=== PATIENT | male | born 1970 | race African-American/Black ===

== ENCOUNTER → 2017-01-04 | Outpatient (CLI) | payer SELFPAY ==
[~2017-01-04] MED LIST: CEFD300C3 PO
--- OUTSIDE RECORDS SUMMARY | 2017-01-04 12:51 | XMS REPORT | Continuity of Care Document ---
Author Author [facility] Address Unknown Phone Unavailable Allergies Active Description Code Type Severity Reaction Onset Reported/Identified Relationship to Patient Clinical Status Yes NKANo Known Allergies NKA Miscellaneous Allergy Unknown N/ A 08/23/2006 Medications Problems Date Dx Coded Attending Type Code Diagnosis Diagnosed By 03/22/2009 726.72 TIBIALIS TENDINITIS 03/22/2009 726.72 TIBIALIS TENDINITIS 03/22/2009 SHASHI NELSON DO 726.72 TIBIALIS TENDINITIS 12/26/2011 491.21 CHRONIC BRONCHITIS - WITH ACUTE EXACERBATION 12/26/2011 V65.42 Patient Education - Alcohol 12/26/2011 491.21 CHRONIC BRONCHITIS - WITH ACUTE EXACERBATION 12/26/2011 V65.42 Patient Education - Alcohol 12/26/2011 SHASHI NELSON DO 491.21 CHRONIC BRONCHITIS - WITH ACUTE EXACERBATION 12/26/2011 SHASHI NELSON DO V65.42 Patient Education - Alcohol 01/05/2012 466.0 BRONCHITIS, ACUTE 01/05/2012 466.0 BRONCHITIS, ACUTE 01/05/2012 SHASHI NELSON DO 466.0 BRONCHITIS, ACUTE 10/02/2012 786.2 COUGH 10/02/2012 786.2 COUGH 10/02/2012 SHASHI NELSON DO 786.2 COUGH 01/08/2016 KAN HUTCHINS MD Ot R51 01/08/2016 KAN HUTCHINS MD Ot Z53.21 01/08/2016 KAN HUTCHINS MD Ot F12.10 01/08/2016 KAN HUTCHINS MD Ot J01.00 Procedures Results Encounters ACCT No. Visit Date/Time Discharge Status Pt. Type Provider Facility Loc./Unit Complaint [id number] 12/06/2012 09:13:00 12/06/2012 23: 59:59 CLS Outpatient [id number] 11/21/2012 08:04:00 11/21/2012 23: 59:59 CLS Outpatient [id number] 01/05/2012 13:29:00 01/05/2012 23:59 :59 [facility] Outpatient SHASHI NELSON DO
--- NOTE | 2017-01-04 16:41 | Diagnostic Imaging Report ---
PROCEDURE: CT head without contrast. TECHNIQUE: Multiple contiguous axial images were obtained through the brain without the use of intravenous contrast. INDICATION: Head pain, sinus pressure, symptoms on the left. COMPARISON: Exam compared to 01/08/2016. FINDINGS: There is no intracranial hemorrhage, hydrocephalus, edema, mass, or mass effect. There were no findings of an elevation of the intracranial pressures. The basilar cisterns are patent. There is no mastoid effusion. The middle ear cavities and external auditory canals appeared unremarkable. There is slight mucous membrane thickening in the left maxillary sinus. The right maxillary, the ethmoids, the sphenoid, and the frontal sinuses were all clear. There is no paranasal sinus air-fluid level. IMPRESSION: Very slight chronic-appearing left maxillary sinus membrane thickening. No air-fluid levels. No acute bony pathology and normal appearance of the brain. Dictated by: Dictated on workstation # [id number]
== END ==
LOC: RAD 12:47
PROVIDERS: ATTEND Nurse Practitioner Family
DX: H57.12 Ocular pain, left eye (principal)
CPT/HCPCS: 70450

== ENCOUNTER 2018-04-01 11:35 | Emergency (ER) | payer OTHER ==
[~2018-04-01] VITALS: Ht 182.9 cm; Wt 72.6 kg
--- OUTSIDE RECORDS SUMMARY | 2018-04-01 11:41 | XMS REPORT ---
Author Author CARLOZ ANNE Organization [facility] Address [address] [place] [address] Care Team Providers Care Professional Skateboarder Name Role Phone CARLOZ ANNE Unavailable PROBLEMS Type Condition ICD9-CM Code [id number]-SQ Code Onset Dates Condition Status SNOMED Code Problem Dental caries K02.9 Active 11568038 Problem Seborrheic keratosis L82.1 Active 275397628 Problem Elevated hemoglobin A1c R73.09 Active 370384510 Problem Right medial knee pain M25.561 Active 89860799 Problem Encounter to establish care Z76.89 Active 953692892 ALLERGIES No Information SOCIAL HISTORY Never Assessed PLAN OF CARE VITAL SIGNS MEDICATIONS No Known Medications RESULTS No Results PROCEDURES No Known procedures IMMUNIZATIONS No Known Immunizations MEDICAL (GENERAL) HISTORY Type Description Date Medical History Poor Historian- Denies [facility] Hospitalization History [facility] - Meningitis 2014
--- OUTSIDE RECORDS SUMMARY | 2018-04-01 11:41 | XMS REPORT ---
Author Author MAYNOR ALBRECHT Organization [facility] Address [address] [place] [address] Care Team Providers Care Animal Attendants And Trainers Name Role Phone MAYNOR ALBRECHT Unavailable PROBLEMS Type Condition ICD9-CM Code [id number] Code Onset Dates Condition Status SNOMED Code Problem Dental caries K02.9 Active 98007684 Problem Seborrheic keratosis L82.1 Active 181742124 Problem Elevated hemoglobin A1c R73.09 Active 231340238 Problem Right medial knee pain M25.561 Active 98366540 Problem Encounter to establish care Z76.89 Active 610516989 ALLERGIES Substance Reaction Event Type Date Status N.K.D.A. Unknown Non Drug Allergy Nov, Unknown SOCIAL HISTORY No smoking Hx information available PLAN OF CARE VITAL SIGNS Height 72 in 2016-12-20 Weight 161.0 lbs 2016-12-20 Temperature 97.7 degrees Fahrenheit 2016-12-20 Heart Rate 52 bpm 2016-12-20 Respiratory Rate 18 2016-12-20 BMI 21.83 kg/m2 2016-12-20 Blood pressure systolic 138 mmHg 2016-12-20 Blood pressure diastolic 92 mmHg 2016-12-20 MEDICATIONS Medication Instructions Dosage Frequency Start Date End Date Duration Status Licking 7.5-325 MG Orally every 6 hrs 1 tablet as needed 6h Nov, Active Augmentin 875-125 MG Orally every 12 hrs 1 tablet 12h Nov, Dec, 10 day(s) Active Amoxicillin 500 MG Orally every 12 hrs 1 tablet 12h Nov, Dec, 14 days Active PredniSONE 20 mg Orally Once a day 2 tablets 24h Nov, Nov, 05 days Active RESULTS No Results PROCEDURES Procedure Date Ordered Related Diagnosis Body Site Office Visit, Est Pt., Level 3 Dec 20, 2016 IMMUNIZATIONS No Known Immunizations
--- OUTSIDE RECORDS SUMMARY | 2018-04-01 11:41 | XMS REPORT ---
Author Author SHASHI NELSON [facility] Address [address] [place] [address] Care Team Providers Care Purler Name Role Phone SHASHI NELSON Unavailable PROBLEMS Type Condition ICD9-CM Code ZXG65-ON Code Onset Dates Condition Status SNOMED Code Problem Dental caries K02.9 Active 98631655 Problem Seborrheic keratosis L82.1 Active 488379585 Problem Elevated hemoglobin A1c R73.09 Active 522710600 Problem Right medial knee pain M25.561 Active 73320091 Problem Encounter to establish care Z76.89 Active 760924166 ALLERGIES No Known Allergies SOCIAL HISTORY No smoking Hx information available PLAN OF CARE VITAL SIGNS MEDICATIONS No Known Medications RESULTS No Results PROCEDURES No Known procedures IMMUNIZATIONS No Known Immunizations
--- OUTSIDE RECORDS SUMMARY | 2018-04-01 11:41 | XMS REPORT ---
Author MITZY Hill Organization [employer] Address Unknown Phone Unavailable Care Team Providers Care Senior Web Analyst Name Role Phone MITZY SANTANA CP Unavailable Allergies No Known Allergies Problems Problem Type Condition ICD-9 Code Onset Dates Condition Status Problem Screening-pulmonary TB V74.1 Active Problem Cough 786.2 Active Problem Routine adult health maintenance V70.0 Active Problem Obstructive chronic bronchitis, with (acute) exacerbation 491.21 Active Problem Acute bronchitis 466.0 Active Problem Counseling on substance use and abuse V65.42 Active Medications No Known Medications Results No Known Results Summary Purpose [employer] Submission
--- OUTSIDE RECORDS SUMMARY | 2018-04-01 11:41 | XMS REPORT ---
Author Author CARLOZ ANNE Organization [facility] Address [address] [place] [address] Care Team Providers Care Parcel Post Officer Name Role Phone CARLOZ ANNE Unavailable PROBLEMS Type Condition ICD9-CM Code RPD48-HS Code Onset Dates Condition Status SNOMED Code Problem Dental caries K02.9 Active 96784845 Problem Seborrheic keratosis L82.1 Active 757327950 Problem Elevated hemoglobin A1c R73.09 Active 353126146 Problem Right medial knee pain M25.561 Active 84368172 Problem Encounter to establish care Z76.89 Active 093897332 ALLERGIES No Known Allergies SOCIAL HISTORY Never Assessed PLAN OF CARE VITAL SIGNS MEDICATIONS No Known Medications RESULTS No Results PROCEDURES No Known procedures IMMUNIZATIONS No Known Immunizations MEDICAL (GENERAL) HISTORY Type Description Date Medical History Poor Historian- Denies [facility] Hospitalization History [facility] - Meningitis 2014
--- OUTSIDE RECORDS SUMMARY | 2018-04-01 11:41 | XMS REPORT ---
Author Author MARIA ELENA ARREAGA Organization [facility] Address [address] [place] [address] Care Team Providers Care Merchant Tailor Name Role Phone MARIA ELENA ARREAGA Unavailable PROBLEMS Type Condition ICD9-CM Code FAM61-VK Code Onset Dates Condition Status SNOMED Code Problem Dental caries K02.9 Active 52373284 Problem Seborrheic keratosis L82.1 Active 708907912 Problem Elevated hemoglobin A1c R73.09 Active 476271915 Problem Right medial knee pain M25.561 Active 09376950 Problem Encounter to establish care Z76.89 Active 179289474 ALLERGIES Substance Reaction Event Type Date Status N.K.D.A. Unknown Non Drug Allergy Nov, Unknown SOCIAL HISTORY No smoking Hx information available PLAN OF CARE Activity Details Follow Up prn Reason: VITAL SIGNS Height 72 in 2016-12-13 Weight 163.2 lbs 2016-12-13 Temperature 98.0 degrees Fahrenheit 2016-12-13 Heart Rate 60 bpm 2016-12-13 Respiratory Rate 18 2016-12-13 BMI 22.13 kg/m2 2016-12-13 Blood pressure systolic 128 mmHg 2016-12-13 Blood pressure diastolic 78 mmHg 2016-12-13 MEDICATIONS Medication Instructions Dosage Frequency Start Date End Date Duration Status Amoxicillin 500 MG Orally every 12 hrs 1 tablet 12h 18 Nov, 2016 Dec, 14 days Active RESULTS No Results PROCEDURES Procedure Date Ordered Related Diagnosis Body Site Office Visit, Est Pt., Level 3 Dec 13, 2016 IMMUNIZATIONS No Known Immunizations
--- OUTSIDE RECORDS SUMMARY | 2018-04-01 11:41 | XMS REPORT ---
Author Author SAURABH GARZA Organization [facility] Address [address] [place] [address] Care Team Providers Care Mortgage Protection Specialist Name Role Phone SAURABH GARZA Unavailable PROBLEMS Type Condition ICD9-CM Code VLE61-DK Code Onset Dates Condition Status SNOMED Code Problem Erectile dysfunction, unspecified erectile dysfunction type N52.9 Active 494023444 Problem Dental caries K02.9 Active 30759571 Problem Encounter to establish care Z76.89 Active 058135517 Problem Elevated hemoglobin A1c R73.09 Active 615724821 Problem Seborrheic keratosis L82.1 Active 719232468 Problem Right medial knee pain M25.561 Active 21873190 ALLERGIES No Known Allergies ENCOUNTERS Encounter Location Date Diagnosis [facility] [id number] [place] [address] Nov, Bilateral groin pain R10.30 [place] [id number] [place] [address] Nov, Bilateral groin pain R10.30 and Erectile dysfunction, unspecified erectile dysfunction type N52.[address] [facility] [id number] [place] [id number] Jun, Dental examination Z01.20 and Dental caries K02.9 [facility] [id number] [place] [address] Jan, [facility] [id number] [place] [address] Dec, Elevated hemoglobin A1c R73.09 [facility] [id number] [place] [address] Dec, Encounter to establish care Z76.89 ; Dental caries K02.9 ; Right medial knee pain M25.561 ; Seborrheic keratosis L82.1 and PPD positive R76.11 [facility] [id number] [place] [address] Dec, [facility] [id number] [place] [address] Dec, Left eye pain H57.12 [facility] [address] [address] Nov, [facility] [address] [address] Nov, Acute recurrent frontal sinusitis J01.11 ; Vision changes H53.9 and Left eye pain H57.12 [facility] [place] [id number] [place] [address] Nov, Acute non-recurrent maxillary sinusitis J01.[address] [facility] [address] [id number] March, Dental examination Z01.20 [place] [address] [address] Jun, [place] [address] [address] Jun, Routine adult health maintenance V70.0 and Screening- pulmonary TB V74.1 [place] [id number] [place] [address] Feb, [place] [id number] [place] [address] Feb, [place] [address] [address] Nov, [facility] [address] [address] Nov, [place] [address] [address] Sep, [facility] [address] [facility] [id number] [address] Sep, [facility] [id number] [address] Sep, [facility] [id number] [address] Sep, [facility] [id number] [address] Aug, [facility] [id number] [address] Aug, [facility] [id number] [address] Dec, [facility] [id number] [address] Dec, [facility] [id number] [address] Nov, IMMUNIZATIONS No Known Immunizations SOCIAL HISTORY Never Assessed REASON FOR VISIT mono PLAN OF CARE VITAL SIGNS Blood pressure systolic 96 mmHg 2017-07-26 Blood pressure diastolic 48 mmHg 2017-07-26 MEDICATIONS Unknown Medications RESULTS No Results PROCEDURES Procedure Date Ordered Result Body Site LTD ORAL EVALUATION - PROBLEM FOCUS Jul 26, 2017 INTRAORL-PERIAPICAL 1 FILM 60913 Jul 26, 2017 EXTRAC ERUPTED TOOTH/EXPOSED ROOT Jul 26, 2017 INSTRUCTIONS MEDICATIONS ADMINISTERED No Known Medications MEDICAL (GENERAL) HISTORY Type Description Date Medical History Poor Historian- Denies [facility] Hospitalization History [facility] - Meningitis 2015
--- OUTSIDE RECORDS SUMMARY | 2018-04-01 11:41 | XMS REPORT ---
Author Author OMID CARLOZ Organization [facility] Address [address] [place] [address] Care Team Providers Care Vice President Payment Name Role Phone ANNECARLOZ Govea Unavailable PROBLEMS Type Condition ICD9-CM Code ETD76-IN Code Onset Dates Condition Status SNOMED Code Problem Dental caries K02.9 Active 31924708 Problem Seborrheic keratosis L82.1 Active 446224596 Problem Elevated hemoglobin A1c R73.09 Active 519375932 Problem Right medial knee pain M25.561 Active 07851302 Problem Encounter to establish care Z76.89 Active 218531650 ALLERGIES No Known Allergies SOCIAL HISTORY Never Assessed PLAN OF CARE Activity Details Follow Up 4 Weeks Reason:F/u labs/xray VITAL SIGNS Height 72 in 2017-01-19 Weight 160 lbs 2017-01-19 Temperature 98.4 degrees Fahrenheit 2017-01-19 Heart Rate 70 bpm 2017-01-19 Respiratory Rate 20 2017-01-19 BMI 21.70 kg/m2 2017-01-19 Blood pressure systolic 114 mmHg 2017-01-19 Blood pressure diastolic 74 mmHg 2017-01-19 MEDICATIONS No Known Medications RESULTS No Results PROCEDURES Procedure Date Ordered Result Body Site GLYCATED HEMOGLOBIN TEST Jan 19, 2017 COMPLETE CBC W/AUTO DIFF WBC Jan 19, 2017 CHEST X-RAY Jan 19, 2017 VENIPUNCT, ROUTINE* Jan 19, 2017 ASSAY THYROID STIM HORMONE Jan 19, 2017 COMPREHEN METABOLIC PANEL Jan 19, 2017 X-RAY EXAM OF KNEE, 3 Jan 19, 2017 LIPID PANEL Jan 19, 2017 IMMUNIZATIONS No Known Immunizations MEDICAL (GENERAL) HISTORY Type Description Date Medical History Poor Historian- Denies [facility] Hospitalization History [facility] - Meningitis 2014
--- OUTSIDE RECORDS SUMMARY | 2018-04-01 11:41 | XMS REPORT ---
Author Author CARLOZ ANNE Organization [facility] Address [address] [place] [address] Care Team Providers Care Ed Teacher Name Role Phone CARLOZ ANNE Unavailable PROBLEMS Type Condition ICD9-CM Code RIL34-QN Code Onset Dates Condition Status SNOMED Code Problem Dental caries K02.9 Active 87640425 Problem Seborrheic keratosis L82.1 Active 556290213 Problem Elevated hemoglobin A1c R73.09 Active 564065018 Problem Right medial knee pain M25.561 Active 23459182 Problem Encounter to establish care Z76.89 Active 600185984 ALLERGIES No Information SOCIAL HISTORY Never Assessed PLAN OF CARE VITAL SIGNS MEDICATIONS No Known Medications RESULTS No Results PROCEDURES No Known procedures IMMUNIZATIONS No Known Immunizations MEDICAL (GENERAL) HISTORY Type Description Date Medical History Poor Historian- Denies [facility] Hospitalization History [facility] - Meningitis 2014
--- OUTSIDE RECORDS SUMMARY | 2018-04-01 11:41 | XMS REPORT | Continuity of Care Document ---
Author Author [facility] Address Unknown Phone Unavailable Allergies Active Description Code Type Severity Reaction Onset Reported/Identified Relationship to Patient Clinical Status Yes NKANo Known Allergies NKA Miscellaneous Allergy Unknown N/A 08/23/2006 Medications There is no data. Problems Date Dx Coded Attending Type Code [...] 01/08/2016 KAN HUTCHINS MD Ot J01.00 Procedures There is no data. Results Test Result Range CBC With Differential/Platelet - 01/19/17 11:37 WBC 4.2 x10E3/uL 3.4-10.8 RBC 4.73 x10E6/uL 4.14-5.80 Hemoglobin 14.1 g/dL 12.6-17.7 Hematocrit 43.3 % 37.5-51.0 MCV 92 fL 79-97 MCH 29.8 pg 26.6-33.0 MCHC 32.6 g/dL 31.5-35.7 RDW 13.9 % 12.3-15.4 Platelets 238 x10E3/uL 150-379 Neutrophils 40 % Lymphs 48 % Monocytes 9 % Eos 2 % Basos 0 % Neutrophils (Absolute) 1.7 x10E3/uL 1.4-7.0 Lymphs (Absolute) 2.0 x10E3/uL 0.7-3.1 Monocytes(Absolute) 0.4 x10E3/uL 0.1-0.9 Eos (Absolute) 0.1 x10E3/uL 0.0-0.4 Baso (Absolute) 0.0 x10E3/uL 0.0-0.2 Immature Granulocytes 1 % Immature Grans (Abs) 0.0 x10E3/uL 0.0-0.1 Comp. Metabolic Panel (14) - 01/19/17 11:37 Glucose, Serum 79 mg/dL 65-99 BUN 11 mg/dL 6-24 Creatinine, Serum 1.07 mg/dL 0.76-1.27 eGFR If NonAfricn Am 82 mL/min/1.73 >59 eGFR If Africn Am 95 mL/min/1.73 >59 BUN/Creatinine Ratio 10 9-20 Sodium, Serum 143 mmol/L 134-144 Potassium, Serum 4.6 mmol/L 3.5-5.2 Chloride, Serum 103 mmol/L 96-106 Carbon Dioxide, Total 27 mmol/L 18-29 Calcium, Serum 9.8 mg/dL 8.7-10.2 Protein, Total, Serum 6.4 g/dL 6.0-8.5 Albumin, Serum 4.4 g/dL 3.5-5.5 Globulin, Total 2.0 g/dL 1.5-4.5 A/G Ratio 2.2 1.1-2.5 Bilirubin, Total 0.5 mg/dL 0.0-1.2 Alkaline Phosphatase, S 38 IU/L 39-117 AST (SGOT) 11 IU/L 0-40 ALT (SGPT) 12 IU/L 0-44 Lipid Panel - 01/19/17 11:37 Cholesterol, Total 168 mg/dL 100-199 Triglycerides 32 mg/dL 0-149 HDL Cholesterol 66 mg/dL >39 VLDL Cholesterol [place] 6 mg/dL 5-40 LDL Cholesterol Calc 96 mg/dL 0-99 Hemoglobin A1c - 01/19/17 11:37 Hemoglobin A1c 6.3 % 4.8-5.6 Thyroid [place] Profile - 01/19/17 11:37 TSH 0.675 uIU/mL 0.450-4.500 PSA - 11/30/17 10:16 PSA, TOTAL 0.8 ng/mL < OR=4.0 Encounters ACCT No. Visit Date/Time Discharge Status Pt. Type Provider Facility Loc./Unit Complaint [id number] 12/06/2012 09:13:00 12/06/2012 23:59:59 CLS Outpatient [id number] 11/21/2012 08:04:00 11/21/2012 23:59:59 CLS Outpatient [id number] 01/05/2012 13:29:00 01/05/2012 23:59:59 CLS Outpatient SHASHI NELSON DO [id number] 11/30/2017 09:40:00 11/30/2017 23:59:59 CLS Outpatient CARLOZ ANNE [facility] [id number] 11/30/2017 09:40:00 Document Registration [id number] 01/22/2017 13:05:00 Document Registration [id number] 07/26/2017 12:40:00 07/26/2017 23:59:59 CLS Outpatient ÁNGEL HASSAN [facility] OCC PRE EMPLOYMENT [id number] 01/04/2017 12:47:00 01/04/2017 23:59:59 CLS Outpatient CARLOZ ANNE APRN [facility] RAD LT EYE PAIN [id number] 01/08/2016 11:31:00 01/08/2016 13:52:00 DIS Emergency KAN HUTCHINS MD [facility] ER [id number] 01/08/2016 10:53:00 01/08/2016 11:06:00 DIS Emergency KAN HUTCHINS MD [facility] ER
--- OUTSIDE RECORDS SUMMARY | 2018-04-01 11:41 | XMS REPORT ---
Author Author CARLOZ ANNE Organization [facility] Address [address] [place] [address] Care Team Providers Care Risk Control Officer Name Role Phone ANNECARLOZ Govea Unavailable PROBLEMS Type Condition ICD9-CM Code VUP17-CR Code Onset Dates Condition Status SNOMED Code Problem Dental caries K02.9 Active 60743180 Problem Seborrheic keratosis L82.1 Active 134600778 Problem Elevated hemoglobin A1c R73.09 Active 724183256 Problem Right medial knee pain M25.561 Active 60097199 Problem Encounter to establish care Z76.89 Active 752311946 ALLERGIES No Known Allergies SOCIAL HISTORY Never Assessed PLAN OF CARE Activity Details Follow Up prn Reason: VITAL SIGNS Height 72 in 2017-01-01 Weight 161.6 lbs 2017-01-01 Temperature 97.8 degrees Fahrenheit 2017-01-01 Heart Rate 64 bpm 2017-01-01 Respiratory Rate 18 2017-01-01 BMI 21.91 kg/m2 2017-01-01 Blood pressure systolic 124 mmHg 2017-01-01 Blood pressure diastolic 74 mmHg 2017-01-01 MEDICATIONS No Known Medications RESULTS Name Result Date Reference Range CT Scan : Brain w/o Contrast 2017-01-04 PROCEDURES No Known procedures IMMUNIZATIONS No Known Immunizations MEDICAL (GENERAL) HISTORY Type Description Date Medical History Poor Historian- Denies [facility] Hospitalization History [facility] - Meningitis 2014
[2018-04-01] MEDS ORDERED: TETANUS,DIPTH,PERTUSS P/F (BOOSTRIX) 0.5 ML VIAL IM ONE (12:15)
[2018-04-01] MEDS ORDERED: AMOX-358 PO (12:18)
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
[2018-04-01 12:53] VITALS: BP 107/69
== END 2018-04-01 12:52 | disposition home or self-care (01) ==
LOC: EDUNIT# 11:35 → ER 11:37
DX: S51.832A Puncture wound without foreign body of left forearm, initial encounter (principal); S51.811A Laceration without foreign body of right forearm, initial encounter; Z23 Encounter for immunization; W54.0XXA Bitten by dog, initial encounter
CPT/HCPCS: 90471; 90715

== ENCOUNTER → 2020-01-23 | Outpatient (CLI) | payer OTHER ==
[~2020-01-23] MED LIST changes: +AMOX-358 PO
--- NOTE | 2020-01-23 15:46 | Diagnostic Imaging Report ---
INDICATION: Right breast lump. COMPARISON: No prior studies are available for comparison. Unilateral right 2-D and 3-D diagnostic mammography was performed with CAD. Left MLO view was also performed for comparison purposes. There is increased density in the retroareolar right breast. This is somewhat flame shaped and likely owing to gynecomastia. No suspicious microcalcifications are seen. This is noted to a lesser degree in the retroareolar left breast. Axillae are unremarkable. IMPRESSION: BI-RADS 0 Findings most suggestive of gynecomastia bilaterally, greatest in the right. Further evaluation of the retroareolar right breast is recommended and will be performed today. ACR BI-RADS Category 0: Incomplete. (Needs additional imaging evaluation). Result letter will be mailed to the patient. Note: At least 10% of breast cancer is not imaged by mammography. Dictated by: Dictated on workstation # [id number]
--- NOTE | 2020-01-23 15:47 | Diagnostic Imaging Report ---
INDICATION: Right breast lump. CORRELATION is made with diagnostic mammogram earlier same day. Sonographic interrogation of the retroareolar right breast was performed. Evaluation of the left breast retroareolar region was also performed for comparison purposes. There is an area of ill-defined hypoechogenicity in the retroareolar right breast approximately 17 mm x 9 mm x 16 mm. This is nonvascular. This has the appearance of gynecomastia. IMPRESSION: BI-RADS Category 2. Findings most consistent with gynecomastia. ACR BI-RADS Category 2: Benign findings. Result letter will be mailed to the patient. Note: At least 10% of breast cancer is not imaged by mammography. Dictated by: Dictated on workstation # [id number]
== END ==
LOC: RAD 13:59
PROVIDERS: ATTEND Physician Assistant
DX: N63.10 Unspecified lump in the right breast, unspecified quadrant (principal)

== ENCOUNTER 2020-06-09 07:05 | Emergency (ER) | payer OTHER ==
[~2020-06-09] VITALS: Ht 182 cm; Wt 75.0 kg
--- OUTSIDE RECORDS SUMMARY | 2020-06-09 07:11 | XMS REPORT | Continuity of Care Document ---
Demographics Preferred Language Unknown Marital Status Unknown Mormon Affiliation Unknown Race Unknown Ethnic Group Unknown Author Organization Unknown Address Unknown Phone Unavailable Allergies Active Description Code Type Severity Reaction Onset Reported/Identified Relationship to Patient Clinical Status Yes NKANo Known Allergies NKA Miscellaneous Allergy Unknown N/A 08/23/2006 Medications There is no data. Problems Date Dx Coded Attending Type Code Diagnosis Diagnosed By 03/22/2009 726.72 TIB IALIS TENDINITIS 03/22/2009 726.72 TIB IALIS TENDINITIS 03/22/2009 SHASHI NELSON DO 726.72 TIBIALIS TENDINITIS 12/26/2011 491.21 CHR ONIC BRONCHITIS - WITH ACUTE EXACERBATION 12/26/2011 V65.42 Pat ient Education - Alcohol 12/26/2011 491.21 CHR ONIC BRONCHITIS - WITH ACUTE EXACERBATION 12/26/2011 V65.42 Pat ient Education - Alcohol 12/26/2011 SHASHI NELSON DO 491.21 CHRONIC BRONCHITIS - WITH ACUTE EXACERBATION 12/26/2011 SHASHI NELSON DO V65.42 Patient Education - Alcohol 01/05/2012 466.0 BRON CHITIS, ACUTE 01/05/2012 466.0 BRON CHITIS, ACUTE 01/05/2012 SHASHI NELSON DO 466.0 BRONCHITIS, ACUTE 10/02/2012 786.2 COUGH 10/02/2012 786.2 COUGH 10/02/2012 SHASHI NELSON DO 786.2 COUGH 01/08/2016 KAN HUTCHINS MD Ot R51 HEADACHE 01/08/2016 KAN HUTCHINS MD Ot Z53.21 PROC/TRTMT NOT CRD OUT D/T PT LV BEF SEE 01/08/2016 KAN HUTCHINS MD Ot F12.10 CANNABIS ABUSE, UNCOMPLICATED 01/08/2016 KAN HUTCHINS MD Ot J01.00 ACUTE MAXILLARY SINUSITIS, UNSPECIFIED 04/01/2018 MOISE FOWLER APRN Ot S51.811A LACERATION W/O FOREIGN BODY OF RIGHT FOR 04/01/2018 MOISE FOWLER APRN Ot S51.832A PUNCTURE WOUND W/O FOREIGN BODY OF LEFT 04/01/2018 MOISE FOWLER APRN Ot W54.0XXA BITTEN BY DOG, INITIAL ENCOUNTER 04/01/2018 MOISE FOWLER APRN Ot Z23 ENCOUNTER FOR IMMUNIZATION 04/01/2018 CARLOZ ANNE RUTHANN Ot H57.12 OCULAR PAIN, LEFT EYE 04/03/2018 MOISE FOWLER APRN Ot S51.811A LACERATION W/O FOREIGN BODY OF RIGHT FOR 04/03/2018 MOISE FOWLER APRN Ot S51.832A PUNCTURE WOUND W/O FOREIGN BODY OF LEFT 04/03/2018 MOISE FOWLER APRN Ot W54.0XXA BITTEN BY DOG, INITIAL ENCOUNTER 04/03/2018 MOISE FOWLER APRN Ot Z23 ENCOUNTER FOR IMMUNIZATION 01/26/2020 TOBY REINOSO Ot N63.10 UNSPECIFIED LUMP IN THE RIGHT BREAST, UN 02/11/2020 TOBY REINOSO Ot N63.10 UNSPECIFIED LUMP IN THE RIGHT BREAST, UN Procedures There is no data. Results Test Result Range CBC With Differential/Platelet - 7 11:37 WBC 4.2 x10E3/uL 3.4-10.8 RBC 4.73 x10E6/uL 4.14-5.80 Hemoglobin 14.1 g/dL 12.6-17.7 Hematocrit 43.3 % 37.5-51.0 MCV 92 fL 79-97 MCH 29.8 pg 26.6-33.0 MCHC 32.6 g/dL 31.5-35.7 RDW 13.9 % 12.3-15.4 Platelets 238 x10E3/uL 150-379 Neutrophils 40 % Lymphs 48 % Monocytes 9 % Eos 2 % Basos 0 % Neutrophils (Absolute) 1.7 x10E3/uL 1.4- 7.0 Lymphs (Absolute) 2.0 x10E3/uL 0.7-3.1 Monocytes(Absolute) 0.4 x10E3/uL 0.1-0.9 Eos (Absolute) 0.1 x10E3/uL 0.0-0.4 Baso (Absolute) 0.0 x10E3/uL 0.0-0.2 Immature Granulocytes 1 % Immature Grans (Abs) 0.0 x10E3/uL 0.0-0. 1 Comp. Metabolic Panel (14) - 01/19/17 11 :37 Glucose, Serum 79 mg/dL 65-99 BUN 11 [...] 11:37 Hemoglobin A1c 6.3 % 4.8-5.6 Thyroid [place] Profile - 01/19/17 11:37 TSH 0.675 uIU/mL 0.450-4.500 PSA - 11/30/17 10:16 PSA, TOTAL 0.8 ng/mL < OR = 4.0 LIPID PANEL - 08/29/19 09:52 CHOLESTEROL, TOTAL 223 mg/dL <200 HDL CHOLESTEROL 72 mg/dL >40 TRIGLYCERIDES 72 mg/dL <150 LDL-CHOLESTEROL 135 mg/dL (calc) NRG CHOL/HDLC RATIO 3.1 (calc) <5.0 NON HDL CHOLESTEROL 151 mg/dL (calc) <13 0 Encounters ACCT No. Visit Date/Time Discharge Status Pt. Type Provider Facility Loc./Unit Complaint [id number] 01/22/2017 13:05:00 Document Registration [id number] 01/12/2020 14:40:00 01/12/2020 23:59: 59 CLS Outpatient TOBY DAVIDSON [facility] [id number] 08/29/2019 09:00:00 Document Registration [id number] 11/30/2017 09:40:00 Document Registration [id number] 12/06/2012 09:13:00 12/06/2012 23:59: 59 CLS Outpatient [id number] 11/21/2012 08:04:00 11/21/2012 23:59: 59 CLS Outpatient [id number] 01/05/2012 13:29:00 01/05/2012 23:59:5 9 CLS Outpatient SHASHI NELSON DO [id number] 01/23/2020 13:59:00 020 23:59:59 CLS Outpatient TOBY REINOSO [facility] RAD LUMP OF RT BREAST [id number] 04/01/2018 11:37:00 018 12:52:00 DIS Emergency MOISE FOWLER APRN [facility] ER DOG BITE ON BOTH FOREAR MS [id number] 07/26/2017 12:40:00 017 23:59:59 CLS Outpatient ÁNGEL HASSAN [employer] [facility] OCC PRE EMPLOYMENT [id number] 01/04/2017 12:47:00 017 23:59:59 CLS Outpatient CARLOZ ANNE APRN [facility] RAD LT EYE PAIN [id number] 01/08/2016 11:31:00 016 13:52:00 DIS Emergency KAN HUTCHINS MD [facility] ER HEADACHE/SINUS PRESSURE [id number] 01/08/2016 10:53:00 016 11:06:00 DIS Emergency KAN HUTCHINS MD [facility] ER HEADACHE/SINUS PRESSURE [id number] 06/09/2020 07:06:[address] Emergency BOBY MORLEY MD [facility] ER COVID SYMPTOMS
--- OUTSIDE RECORDS SUMMARY | 2020-06-09 07:11 | XMS REPORT ---
Author Author Edin ALBRECHT Organization [facility] Address [address] [place] [address] Care Team Providers Care Slitter Scorer Cut Off Operator Name Role Phone MAYNOR ALBRECHT Unavailable PROBLEMS Type Condition ICD9-CM Code [id number] Code Onset Dates Condition S tatus SNOMED Code Problem Erectile dysfunction, unspecified erectile dysfunction typ e N52.9 Active 059169936 Problem Dental caries K02.9 Active 418550 01 Problem Encounter to establish care Z76.89 Ac tive 801886720 Problem Elevated hemoglobin A1c R73.09 Active 564542499 Problem Seborrheic keratosis L82.1 Active 796544840 Problem Right medial knee pain M25.561 Active 71711738 ALLERGIES No Information ENCOUNTERS Encounter Location Date Diagnosis [facility] [address] [facility] [id number] [address] [place] [phone] Feb, [facility] [address] [facility] [id number] [address] [place] [phone] Nov, Bilateral groin pain R10.30 [facility] [address] [facility] [id number] [address] [place] [phone] Nov, Bilateral groin pain R10.30 and Erectile dysfunction, unspecified erectile dysfunction type N52.9 [facility] [address] [id number] [address] [place] [phone] Jun, Dental examination Z01.20 an d Dental caries K02.9 [facility] [address] [facility] [id number] [address] [place] [phone] Jan, [facility] [address] [facility] [id number] [address] [place] [phone] Dec, Elevated hemoglobin A1c R73. 09 [facility] [address] [place] [id number] [address] [place] [phone] Dec, Encounter to establish care Z76.89 ; Dental caries K02.9 ; Right medial knee pain M25.561 ; Seborrheic keratosis L82.1 and PPD positive R76.11 [facility] [address] [facility] [id number] [address] [place] [phone] Dec, [facility] [address] [facility] [id number] [address] [place] [phone] Dec, Left eye pain H57.12 [facility] [address] [facility] [id number] [address] [place] [phone] Nov, [facility] [address] [facility] [id number] [place] [phone] Nov, Acute recurrent frontal sinu sitis J01.11 ; Vision changes H53.9 and Left eye pain H57.12 [facility] [address] [facility] [id number] [address] [place] [phone] Nov, Acute non-recurrent maxillar y sinusitis J01.00 [facility] [address] [id number] [address] [place] [phone] March, Dental examination Z01.20 [facility] [address] [facility] [id number] [address] [place] [phone] Jun, [facility] [address] [place] [id number] [address] [place] [phone] Jun, Routine adult health mainten ance V70.0 and Screening-pulmonary TB V74.1 [facility] [address] [facility] [id number] [address] [place] [phone] Feb, [facility] [address] [place] [id number] [place] [phone] Feb, [facility] [address] [facility] [id number] [address] [place] [phone] Nov, [facility] [address] [phone] Nov, [facility] [address] [id number] [address] [place] [phone] Sep, [facility] [address] [id number] [address] [place] [phone] Sep, [facility] [address] [id number] [address] [place] [phone] Sep, [facility] [address] [id number] [address] [place] [phone] Sep, [facility] [address] [id number] [address] [place] [phone] Aug, [facility] [address] [id number] [address] [place] [phone] Aug, [facility] [address] [facility] [id number] [address] [place] [phone] Dec, [facility] [address] [id number] [address] [place] [phone] Dec, [facility] [address] [facility] [id number] [address] [place] [phone] Nov, IMMUNIZATIONS No Known Immunizations SOCIAL HISTORY Never Assessed REASON FOR VISIT med refill PLAN OF CARE VITAL SIGNS MEDICATIONS Unknown Medications RESULTS No Results PROCEDURES No Known procedures INSTRUCTIONS MEDICATIONS ADMINISTERED No Known Medications MEDICAL (GENERAL) HISTORY Type Description Date Medical History Poor Historian- Denies [facility] Hospitalization History [facility] - Meningitis 2015
--- OUTSIDE RECORDS SUMMARY | 2020-06-09 07:11 | XMS REPORT ---
Author Author Edin Foster Doctor Organization [facility] Address Unknown Phone Unavailable Care Team Providers Care Bead Wrapper Name Role Phone Migration, Doctor Unavailable Unavailable PROBLEMS Type Condition ICD9-CM Code [id number] Code Onset Dates Condition S tatus SNOMED Code Problem Dental caries K02.9 Active 360022 01 Problem Erectile dysfunction, unspecified erectile dysfunction typ e N52.9 Active 755987478 Problem Elevated hemoglobin A1c R73.09 Active 111236147 Problem Encounter to establish care Z76.89 Ac tive 739918411 Problem Right medial knee pain M25.561 Active 66778361 Problem Seborrheic keratosis L82.1 Active 526602298 ALLERGIES No Information ENCOUNTERS Encounter Location Date Diagnosis [facility] [address] [facility] [id number] [address] [place] [phone] March, Rash R21 and Allergic conjun ctivitis of left eye H10.12 [facility] [address] [facility] [id number] [address] [place] [phone] Feb, [facility] [address] [facility] [id number] [address] [place] [phone] Nov, Bilateral groin pain R10.30 [facility] [address] [facility] [id number] [address] [place] [phone] Nov, Bilateral groin pain R10.30 and Erectile dysfunction, unspecified erectile dysfunction type N52.9 [facility] [address] [id number] [address] [place] [phone] Jun, Dental examination Z01.20 an d Dental caries K02.9 [facility] [address] [facility] [id number] [address] [place] [phone] Jan, [facility] [address] [facility] [id number] [address] [place] [phone] Dec, Elevated hemoglobin A1c R73. 09 [facility] [address] [facility] [id number] [address] [place] [phone] Dec, Encounter to establish care Z76.89 ; Dental caries K02.9 ; Right medial knee pain M25.561 ; Seborrheic keratosis L82.1 and PPD positive R76.11 [facility] [address] [facility] [id number] [address] [place] [phone] Dec, [facility] [address] [facility] [id number] [address] [place] [phone] Dec, Left eye pain H57.12 [facility] [address] [facility] [id number] [place] [phone] Nov, [facility] [address] [facility] [id number] [address] [place] [phone] Nov, Acute recurrent frontal sinu sitis J01.11 ; Vision changes H53.9 and Left eye pain H57.12 [facility] [address] [facility] [id number] [address] [place] [phone] Nov, Acute non-recurrent maxillar y sinusitis J01.00 [facility] [address] [facility] [id number] [address] [place] [phone] March, Dental examination Z01.20 [place] [address] [facility] [id number] [address] [place] [phone] Jun, [place] [address] [place] [id number] [address] [place] [phone] Jun, Routine adult health mainten ance V70.0 and Screening-pulmonary TB V74.1 [place] [address] [place] [id number] [address] [place] [phone] Feb, [place] [address] [facility] [id number] [address] [place] [phone] Feb, [facility] [address] [place] [id number] [place] [phone] Nov, [facility] [address] [id number] [address] [place] [phone] Nov, [facility] [address] [id number] [address] [place] [phone] Sep, [facility] [address] [id number] [address] [place] [phone] Sep, [facility] [address] [id number] [address] [place] [phone] Sep, [facility] [address] [id number] [address] [place] [phone] Sep, [facility] [address] [id number] [address] [place] [phone] Aug, [facility] [address] [id number] [address] [place] [phone] Aug, [facility] [address] [id number] [address] [place] [phone] Dec, [facility] [address] [id number] [address] [place] [phone] Dec, [facility] [address] [id number] [address] [place] [phone] Nov, IMMUNIZATIONS No Known Immunizations SOCIAL HISTORY Never Assessed REASON FOR VISIT PLAN OF CARE VITAL SIGNS Height 72 in 2012-10-02 Weight 158 lbs 2012-10-02 Temperature 97.7 degrees Fahrenheit 2012-10-02 Heart Rate 64 bpm 2012-10-02 Respiratory Rate 18 2012-10-02 Blood pressure systolic 108 mmHg 2012-10-02 Blood pressure diastolic 80 mmHg 2012-10-02 MEDICATIONS No Known Medications RESULTS No Results PROCEDURES No Known procedures INSTRUCTIONS MEDICATIONS ADMINISTERED No Known Medications MEDICAL (GENERAL) HISTORY Type Description Date Medical History Poor Historian- Denies [facility] Surgical History No know Surgical history Hospitalization History [facility] 2014
--- OUTSIDE RECORDS SUMMARY | 2020-06-09 07:11 | XMS REPORT ---
Author Author Edin ALBRECHT Organization [facility] Address [address] [place] [address] Care Team Providers Care Inventory Control Coordinator Name Role Phone MAYNOR ALBRECHT Unavailable PROBLEMS Type Condition ICD9-CM Code ZTY66-VO Code Onset Dates Condition S tatus SNOMED Code Problem Erectile dysfunction, unspecified erectile dysfunction typ e N52.9 Active 624563582 Problem Dental caries K02.9 Active 902672 01 Problem Encounter to establish care Z76.89 Ac tive 849384511 Problem Elevated hemoglobin A1c R73.09 Active 013566803 Problem Seborrheic keratosis L82.1 Active 931306238 Problem Right medial knee pain M25.561 Active 76700425 ALLERGIES No Known Allergies ENCOUNTERS Encounter Location Date Diagnosis [facility] [address] [facility] [id number] [address] [place] [phone] Feb, [facility] [address] [facility] [id number] [address] [place] [phone] Nov, Bilateral groin pain R10.30 [facility] [address] [facility] [id number] [address] [place] [phone] Nov, Bilateral groin pain R10.30 and Erectile dysfunction, unspecified erectile dysfunction type N52.9 [facility] [address] [id number] [address] [place] [phone] Jun, Dental examination Z01.20 an d Dental caries K02.9 [facility] [address] [facility] [id number] [address] [place] [phone] Jan, [facility] [address] [facility] [id number] [address] [place] [phone] Dec, Elevated hemoglobin A1c R73. 09 [facility] [address] [facility] [id number] [address] [place] [phone] Dec, Encounter to establish care Z76.89 ; Dental caries K02.9 ; Right medial knee pain M25.561 ; Seborrheic keratosis L82.1 and PPD positive R76.11 [facility] [address] [facility] [id number] [address] [place] [phone] Dec, [facility] [address] [facility] [id number] [address] [place] [phone] Dec, Left eye pain H57.12 [facility] [address] [facility] [id number] [address] [place] [phone] Nov, [facility] [address] [facility] [id number] [place] [phone] Nov, Acute recurrent frontal sinu sitis J01.11 ; Vision changes H53.9 and Left eye pain H57.12 [facility] [address] [place] [id number] [address] [place] [phone] Nov, Acute non-recurrent maxillar y sinusitis J01.00 [facility] [address] [id number] [address] [place] [address] [phone] March, Dental examination Z01.20 [facility] [address] [facility] [id number] [address] [place] [phone] Jun, [facility] [address] [place] [id number] [address] [place] [phone] Jun, Routine adult health mainten ance V70.0 and Screening-pulmonary TB V74.1 [facility] [address] [facility] [id number] [address] [place] [phone] Feb, [facility] [address] [facility] [id number] [place] [phone] Feb, [facility] [address] [place] [id number] [address] [place] [phone] Nov, [facility] [address] [phone] Nov, [facility] [address] [id number] [address] [place] [phone] Sep, [facility] [address] [id number] [address] [place] [phone] Sep, [facility] [address] [id number] [address] [place] [phone] Sep, [facility] [address] [id number] [address] [place] [phone] Sep, [facility] [address] [id number] [address] [place] [phone] Aug, [facility] [address] [id number] [address] [place] [phone] Aug, [facility] [address] [id number] [address] [place] [phone] Dec, [facility] [address] [id number] [address] [place] [phone] Dec, [facility] [address] [id number] [address] [place] [phone] Nov, IMMUNIZATIONS No Known Immunizations SOCIAL HISTORY Never Assessed REASON FOR VISIT pain in groin, PT also has been having ED since oct[facility] PLAN OF CARE VITAL SIGNS Height 72 in 2017-11-30 Weight 153.4 lbs 2017-11-30 Temperature 98.4 degrees Fahrenheit 2017-11-30 Heart Rate 62 bpm 2017-11-30 Respiratory Rate 18 2017-11-30 BMI 20.80 kg/m2 2017-11-30 Blood pressure systolic 108 mmHg 2017-11-30 Blood pressure diastolic 74 mmHg 2017-11-30 MEDICATIONS Medication Instructions Dosage Frequency Start Date End Date Duration S tatus Viagra 100 mg Orally Once a day 1 tablet as needed 24h Nov, Nov, 10 days Active Franklin 7.5-325 MG Orally every 6 hrs 1 tablet as needed 6h Nov, 017 Not-Taking RESULTS No Results PROCEDURES Procedure Date Ordered Result Body Site LAB NOT BILLED BY [facility] Nov 30, 2017 VENIPUNCT, ROUTINE* Nov 30, 2017 INSTRUCTIONS MEDICATIONS ADMINISTERED No Known Medications MEDICAL (GENERAL) HISTORY Type Description Date Medical History Poor Historian- Denies [facility] Hospitalization History [facility] - Meningitis 2015
--- OUTSIDE RECORDS SUMMARY | 2020-06-09 07:11 | XMS REPORT ---
Author Author Edin Foster Doctor Organization [facility] Address Unknown Phone Unavailable Care Team Providers Care Box Bender Name Role Phone Migration, Doctor Unavailable Unavailable PROBLEMS Type Condition ICD9-CM Code SPN27-RT Code Onset Dates Condition S tatus SNOMED Code Problem Dental caries K02.9 Active 743307 01 Problem Erectile dysfunction, unspecified erectile dysfunction typ e N52.9 Active 156893225 Problem Elevated hemoglobin A1c R73.09 Active 716972972 Problem Encounter to establish care Z76.89 Ac tive 655630641 Problem Right medial knee pain M25.561 Active 26704987 Problem Seborrheic keratosis L82.1 Active 488123973 ALLERGIES No Information ENCOUNTERS Encounter Location Date Diagnosis [facility] [address] [facility] [id number] [address] [place] [phone] Feb, [facility] [address] [facility] [id number] [address] [place] [phone] Nov, Bilateral groin pain R10.30 [facility] [address] [facility] [id number] [address] [place] [phone] Nov, Bilateral groin pain R10.30 and Erectile dysfunction, unspecified erectile dysfunction type N52.9 [facility] [address] [facility] [id number] [address] [place] [phone] Jun, Dental examination Z01.20 an d Dental caries K02.9 [facility] [address] [facility] [id number] [address] [place] [phone] Jan, [facility] [address] [facility] [id number] [address] [place] [phone] Dec, Elevated hemoglobin A1c R73. 09 [facility] [address] [facility] [id number] [address] [place] [phone] Dec, Encounter to establish care Z76.89 ; Dental caries K02.9 ; Right medial knee pain M25.561 ; Seborrheic keratosis L82.1 and PPD positive R76.11 [facility] [address] [facility] [id number] [address] [place] [phone] Dec, [facility] [address] [facility] [id number] [address] [place] [phone] Dec, Left eye pain H57.12 [facility] [address] [facility] [id number] [address] [place] [phone] Nov, [facility] [address] [facility] [id number] [address] [place] [phone] Nov, Acute recurrent frontal sinu sitis J01.11 ; Vision changes H53.9 and Left eye pain H57.12 [facility] [address] [place] [id number] [address] [place] [phone] Nov, Acute non-recurrent maxillar y sinusitis J01.00 [facility] [address] [id number] [address] [place] [phone] March, Dental examination Z01.20 [place] [address] [place] [id number] [address] [place] [phone] Jun, [place] [address] [place] [id number] [address] [place] [phone] Jun, Routine adult health mainten ance V70.0 and Screening-pulmonary TB V74.1 [facility] [address] [place] [id number] [address] [place] [phone] Feb, [facility] [address] [facility] [id number] [place] [phone] Feb, [facility] [address] [place] [id number] [address] [place] [phone] Nov, [facility] [address] [place] [id number] [address] [place] [phone] Nov, [facility] [address] [place] [id number] [address] [place] [phone] Sep, [facility] [address] [id number] [address] [place] [phone] Sep, [facility] [address] [id number] [address] [place] [phone] Sep, [facility] [address] [id number] [address] [place] [phone] Sep, [facility] [address] [id number] [address] [place] [phone] Aug, [facility] [address] [id number] [address] [place] [phone] Aug, [facility] [address] [id number] [address] [place] [phone] Dec, [facility] [address] [id number] [address] [place] [phone] Dec, [facility] [address] [id number] [address] [place] [phone] Nov, IMMUNIZATIONS No Known Immunizations SOCIAL HISTORY Never Assessed REASON FOR VISIT [facility] PLAN OF CARE VITAL SIGNS MEDICATIONS Medication Instructions Dosage Frequency Start Date End Date Duration S tatus Susanon Perles 100 mg take 1 capsule by Oral route 3 times per day for 7 daysPRN Sep, Active Claritin 10 mg take 1 tablet by Oral route 1 time per day Sep, Active Albuterol Sulfate 90 mcg/actuation take 2 puffs by Inhalation route every 4-6 hours as neededPRNcough or wheezing Sep, Active Promethazine-Codeine 6.25-10 mg/5 mL 5 m L by Oral route every 4 hours for 5 day(s) Dec, Active Dulera 100-5 mcg/actuation 2 puffs by In halation route 2 times per day for 30 day(s) Dec, Active RESULTS No Results PROCEDURES No Known procedures INSTRUCTIONS MEDICATIONS ADMINISTERED No Known Medications MEDICAL (GENERAL) HISTORY Type Description Date Medical History Poor Historian- Denies [facility] Hospitalization History [facility] - Meningitis 2014
--- OUTSIDE RECORDS SUMMARY | 2020-06-09 07:11 | XMS REPORT ---
Author Author Edin Foster Doctor Organization [facility] Address Unknown Phone Unavailable Care Team Providers Care Plug Cutting Machine Operator Name Role Phone Migration, Doctor Unavailable Unavailable PROBLEMS Type Condition ICD9-CM Code ZOZ80-EV Code Onset Dates Condition S tatus SNOMED Code Problem Dental caries K02.9 Active 516590 01 Problem Erectile dysfunction, unspecified erectile dysfunction typ e N52.9 Active 291777612 Problem Elevated hemoglobin A1c R73.09 Active 747231232 Problem Encounter to establish care Z76.89 Ac tive 825003373 Problem Right medial knee pain M25.561 Active 55378250 Problem Seborrheic keratosis L82.1 Active 395014369 ALLERGIES No Information ENCOUNTERS Encounter Location Date Diagnosis [facility] [address] [facility] [id number] [address] [place] [phone] March, Rash R21 and Allergic conjun ctivitis of left eye H10.12 [facility] [address] [facility] [id number] [address] [place] [phone] Feb, [facility] [address] [facility] [id number] [address] [place] [phone] Nov, Bilateral groin pain R10.30 [facility] [address] [facility] [id number] [address] [place] [phone] Nov, Bilateral groin pain R10.30 and Erectile dysfunction, unspecified erectile dysfunction type N52.9 [facility] [address] [id number] [address] [place] [address] [id number] Jun, Dental examination Z01.20 an d Dental caries K02.9 [facility] [address] [facility] [id number] [address] [place] [phone] Jan, [facility] [address] [facility] [id number] [address] [place] [phone] Dec, Elevated hemoglobin A1c R73. 09 [facility] [address] [facility] [id number] [address] [place] [phone] Dec, Encounter to establish care Z76.89 ; Dental caries K02.9 ; Right medial knee pain M25.561 ; Seborrheic keratosis L82.1 and PPD positive R76.11 [facility] [address] [facility] [id number] [address] [place] [phone] Dec, [facility] [address] [facility] [id number] [address] [place] [phone] Dec, Left eye pain H57.12 [facility] [address] [facility] [id number] [place] [phone] Nov, [facility] [address] [facility] [id number] [address] [place] [phone] Nov, Acute recurrent frontal sinu sitis J01.11 ; Vision changes H53.9 and Left eye pain H57.12 [facility] [address] [facility] [id number] [address] [place] [phone] Nov, Acute non-recurrent maxillar y sinusitis J01.00 [facility] [address] [facility] [id number] [address] [place] [address] [phone] March, Dental examination Z01.20 [place] [address] [facility] [id number] [address] [place] [phone] Jun, [place] [address] [place] [id number] [address] [place] [phone] Jun, Routine adult health mainten ance V70.0 and Screening-pulmonary TB V74.1 [place] [address] [place] [id number] [address] [place] [phone] Feb, [place] [address] [facility] [id number] [address] [place] [phone] Feb, [facility] [address] [place] [id number] [place] [phone] Nov, [facility] [address] [id number] [address] [place] [phone] Nov, [facility] [address] [id number] [address] [place] [phone] Sep, [facility] [address] [id number] [address] [place] [phone] Sep, [facility] [address] [id number] [address] [place] [phone] Sep, [facility] [address] [id number] [address] [place] [phone] Sep, [facility] [address] [id number] [address] [place] [phone] Aug, [facility] [address] [id number] [address] [place] [phone] Aug, [facility] [address] [id number] [address] [place] [phone] Dec, [facility] [address] [id number] [address] [place] [phone] Dec, [facility] [address] [id number] [address] [place] [phone] Nov, IMMUNIZATIONS No Known Immunizations SOCIAL HISTORY Never Assessed REASON FOR VISIT [facility] [place] OF CARE VITAL SIGNS MEDICATIONS No Known Medications RESULTS No Results PROCEDURES No Known procedures INSTRUCTIONS MEDICATIONS ADMINISTERED No Known Medications MEDICAL (GENERAL) HISTORY Type Description Date Medical History Poor Historian- Denies [facility] Surgical History No know Surgical history Hospitalization History [facility] 2015
--- OUTSIDE RECORDS SUMMARY | 2020-06-09 07:11 | XMS REPORT ---
Author Author [employer] tactical/mobile watch officer [employer] [facility] its[facility]apper Address [address] [place] [address] Care Team Providers Care Edger Operator Name Role Phone NO, LOCAL PHYSICIAN Unavailable Unavailable MITZY SANTANA Unavailable Unavailable MARIA ELENA ARREAGA Unavailable MAYNOR ALBRECHT Unavailable CARLOZ ANNE Unavailable ANNEMITCHELL GoveaELE Unavailable MITCHELL ANNEELE Unavailable SAURABH GARZA Unavailable MAYNOR ALBRECHT Unavailable MAYNOR ALBRECHT Unavailable CARLOZ ANNE R CLUTCH INSPECTOR Unavailable Unavailable Migration, Doctor Unavailable Unavailable ANNEMITCHELL GoveaELE Unavailable Unavailable Migration, Doctor Unavailable Unavailable Migration, Doctor Unavailable Unavailable TOBY DAVIDSON Unavailable Unavailable Unavailable Unavailable TOBY REINOSO Unavailable Unavailable Unavailable Unavailable Unavailable Unavailable Unavailable Unavailable Allergies The data below is from unstructured sources Allergen Type Severity Reaction Status Last Updated No Known Allergies Allergy Unknown Active 08/23/06 Substance Reaction Event Type Date Status N.K.D.A. Unknown Non Morgan g Allergy Nov, Unknown Substance Reaction Event Type Date Status N.K.D.A. Unknown Non Morgan g Allergy Nov, Unknown No Information Encounters Encounter Date Encounter Type Encounter Diagnosis Care Provider Facility Start: Patient encounter TOBY ESCOBAR [facility] 01-23-2020 [facility] Start: Patient encounter TOBY DAVIDSON [facility] 01-12-2020 procedure [facility] Start: Patient encounter TOBY DAVIDSON [facility] 12-27-2019 procedure [facility] ([id number]) Start: Patient encounter HERBIE STONER [facility] 08-29-2019 procedure [facility] ([id number]) Start: [facility] Rash and other LANCEXuan [facility] 03-31[facility]2019 CARE nonspecific skin CARE eruption Start: Patient encounter CARLOZ ANNE [facility]alt 03-31-2019 procedure [facility] ([id number]) Start: Emergency department 04-01-2018 patient visit End: 04-01-2018 Start: Patient encounter NA NA Not Avail[facility] le ([id number]) 04-01-2018 procedure Start: Patient encounter ÁNGEL HASSAN Not [facility]ail[facility] ([id number]) 07-26-2017 procedure Start: Patient encounter CARLOZ ANNE Not [facility] ([id number]) 01-04-2017 procedure Start: Emergency department 01-08-2016 patient visit End: 01-08-2016 Patient encounter NA NA Not Available (0000 0) procedure Medical Equipment No Information Goals No Information Immunizations Immunizatio Immunization Notes Care Provider Facility n Date 04-01-2018 tetanus toxoid, NA NA Not Available ([id number]) reduced diphtheria toxoid, and acellular pertussis vaccine, adsorbed Interventions No Information Medications The data below is from unstructured sourcesNo Known Medications No Known Medications No Known Medications No Known Medications No Known Medications No Known Medications No Known Medications Unknown Medications Unknown Medications Unknown Medications Unknown Medications No Known Medications No Known Medications No Known Medications No Known Medications No Known Medications No Known Medications No Known Medications Payers No Information Plan of Treatment The data below is from unstructured sources Discharge Date 01/08/16 1:52pm Disposition 01 HOME, SELF-CARE Condition at Discharge Stable/Unchan ged Instructions/Education Provided Sinu sitis (ED) Prescriptions See Medication Section Referrals NO,LOCAL PHYSICIAN - [facility] Physician Additional Instructions/Education Al l discharge instructions reviewed with patient and/or family. Voiced understanding. Use ibuprofen 6-800 mg every 6 hours as needed Take Omnicef as directed. Activity Details Follow Up prn Reason: Activity Details Follow Up 4 Weeks Reason:F/u labs/xr ay Problems Active Problems Problem Problem Date Last Documented Episodic/Chr Provider Classificati Recorded Date onic on E Codes: Bitten by dog, initial encounter Epi sodic Natural/envi ronment (3 sources) Headache; Headache Episodic including migraine (1 source) Open wounds Puncture wound without foreign body Episodic of of left forearm, initial en counter extremities ; Translations: [LACERATION W/O (3 sources) FOREIGN BODY OF RIGHT FOR] Residual Procedure and treatment not carried Episodic codes; out due to patient leaving prior to unclassified being seen by health care p marisabel (1 source) Substance-re Cannabis abuse, uncomplicated Chronic NA NA lated disorders (1 source) Past or Other Problems Problem Problem Date Last Documented Episodic/Chr Provider Classificati Recorded Date onic on Inflammation Acute atopic conjunctivitis, left Episodic Doctor ; infection eye ; Translations: [ - Allergic Mi gration of eye conjunctivitis of left eye H10.12] (except that caused by tuberculosis or sexually transmittedd isease) (2 sources) Nonmalignant Unspecified lump in the right Episodic TOBY breast breast, unspecified quadrant TORCHI A [place] conditions (2 sources) Other skin Rash and other nonspecific skin Episodic Doctor disorders eruption ; Translations: [ - Rash M igration (2 sources) R21] Procedures The data below is from unstructured sources Procedure Date Ordered R elated Diagnosis Body Site Office Visit, Est Pt., Level 3 Dec 13 Procedure Date Ordered R elated Diagnosis Body Site Office Visit, Est Pt., Level 3 Dec 20 7 No Known procedures Results Test Name Value Interpreta Reference Facilit Date tion Range y Time laboratory on 2019-08-29 Albumin [Mass/Vol] 4.3 g/dL Normal 3.6-5.1 Communi g/dL [facility] ([id number]) Albumin/Globulin 1.8 {ratio} Normal 1.0-2.5 Communi [Mass ratio] (calc) [facility] ([id number]) ALP [Catalytic 40 U/L Normal 40-115 U/L Communi activity/Vol] [facility] ([id number]) ALT [Catalytic 22 U/L Normal 9-46 U/L Communi activity/Vol] [facility] ([id number]) AST [Catalytic 14 U/L Normal 10-35 U/L Communi activity/Vol] [facility] ([id number]) Basophils (Bld) 0.018 10*3/uL Normal 0-200 Communi [#/Vol] cells/uL [facility] (02643) Basophils/100 WBC 0.4 % Normal % Communi (Bld) [facility] (16560) Bilirubin [Mass/Vol] 0.7 mg/dL Normal 0.2-1.2 Commu ni mg/dL ty [facility] (97266) Calcium [Mass/Vol] 9.9 mg/dL Normal 8.6-10.3 Communi mg/dL [facility] ([id number]) Chloride [Moles/Vol] 102 mmol/L Normal 98-110 Commu ni mmol/L [facility] () Cholesterol 223 mg/dL High <200 mg/dL Communi [Mass/Vol] ty [facility] () Cholesterol in HDL 72 mg/dL Normal >40 mg/dL Communi [Mass/Vol] ty [facility] () Cholesterol in LDL 135 mg/dL High mg/dL Communi [Mass/Vol] (calc) [facility] () Cholesterol non HDL 151 mg/dL High <130 mg/dL Commun i [Mass/Vol] (calc) [facility] () Cholesterol.total/Ch 3.1 {ratio} Normal <5.0 Commu ni olesterol in HDL (calc) ty [Mass ratio] [facility] () CO2 [Moles/Vol] 32 mmol/L Normal 20-32 Communi mmol/L [facility] (94708) Creatinine 0.98 mg/dL Normal 0.70-1.33 Communi [Mass/Vol] mg/dL ty [facility] (36022) Eosinophils (Bld) 0.129 10*3/uL Normal 15-500 Commun i [#/Vol] cells/uL [facility] (97339) Eosinophils/100 WBC 2.8 % Normal % Commun i (Bld) [facility] (98774) Erythrocyte 13.0 % Normal 11.0-15.0 Communi distribution width % ty (RBC) [Ratio] [facility] () GFR/1.73 sq 104 mL/min/{1.73_m2} Normal > OR = 60 Commu ni M.predicted among mL/min/1.7 ty blacks MDRD 3m2 Health (S/P/Bld) [Vol Center rate/Area] [facility] (61857) GFR/1.73 sq 90 mL/min/{1.73_m2} Normal > OR = 60 Commun i M.predicted MDRD mL/min/1.7 ty (S/P/Bld) [Vol 3m2 Health rate/Area] [facility] (27058) Globulin (S) 2.4 g/dL Normal 1.9-3.7 Communi [Mass/Vol] g/dL ty (calc) [facility] (09653) Glucose [Mass/Vol] 96 mg/dL Normal 65-99 Communi mg/dL ty [facility] (78346) Hematocrit (Bld) 46.4 % Normal 38.5-50.0 Communi [Volume fraction] % ty [facility] (92583) Hemoglobin (Bld) 15.1 g/dL Normal 13.2-17.1 Communi [Mass/Vol] g/dL [facility] (35240) Lymphocytes (Bld) 1.665 10*3/uL Normal 850-3900 Commun i [#/Vol] cells/uL [facility] (99169) Lymphocytes/100 WBC 36.2 % Normal % Commun i (Bld) [facility] (83255) MCH (RBC) [Entitic 29.4 pg Normal 27.0-33.0 Communi mass] pg [facility] (33272) MCHC (RBC) 32.5 g/dL Normal 32.0-36.0 Communi [Mass/Vol] g/dL [facility] (49261) MCV (RBC) [Entitic 90.3 fL Normal 80.0-100.0 Communi vol] fL [facility] (03451) Monocytes (Bld) 0.451 10*3/uL Normal 200-950 Communi [#/Vol] cells/uL [facility] (52475) Monocytes/100 WBC 9.8 % Normal % Communi (Bld) ty [facility] (75210) Neutrophils (Bld) 2.337 10*3/uL Normal 8651-6667 Commun i [#/Vol] cells/uL ty [facility] (15230) Neutrophils/100 WBC 50.8 % Normal % Commun i (Bld) ty [facility] (34374) Platelet mean volume 10.0 fL Normal 7.5-12.5 Commu ni (Bld) [Entitic vol] fL ty [facility] (62152) Platelets (Bld) 241 10*3/uL Normal 140-400 Communi [#/Vol] Thousand/u ty L [facility] (62902) Potassium 4.1 mmol/L Normal 3.5-5.3 Communi [Moles/Vol] mmol/L ty [facility] (55485) Prostate specific Ag 1.1 ng/mL Normal < OR = 4.0 Commu ni [Mass/Vol] ng/mL ty [facility] (28431) Protein [Mass/Vol] 6.7 g/dL Normal 6.1-8.1 Communi g/dL ty [facility] (68595) RBC (Bld) [#/Vol] 5.14 10*6/uL Normal 4.20-5.80 Communi Million/uL ty [facility] (71934) Sodium [Moles/Vol] 141 mmol/L Normal 135-146 Communi mmol/L ty [facility] (23565) Triglyceride 72 mg/dL Normal <150 mg/dL Communi [Mass/Vol] ty [facility] (00519) Urea nitrogen 10 mg/dL Normal 7-25 mg/dL Communi [Mass/Vol] ty [facility] (04455) Urea NOT APPLICABLE Invalid 6-22 Communi nitrogen/Creatinine Interpreta (calc) ty [Mass ratio] tion Code [facility] (98174) WBC (Bld) [#/Vol] 4.6 10*3/uL Normal 3.8-10.8 Communi Thousand/u ty L [facility] ([id number]) laboratory on 2017-01-22 TSH Qn 0.675 Invalid 0.450-4.50 Not Interpreta 0 uIU/mL [facility] 017 tion Code le 13:59-0 (48087) 500 laboratory on 2017-01-20 Albumin [Mass/Vol] 4.4 g/dL Invalid 3.5-5.5 Not 12-28 5-2 Interpreta g/dL [facility] 017 tion Code le 08:00-0 (85775) 500 Albumin/Globulin 2.2 {ratio} Invalid 1.1-2.5 Not 12-28 5-2 [Mass ratio] Interpreta Avail[facility] 017 tion Code le 08:00-0 (79428) 500 ALP [Catalytic 38 U/L Low 39-117 Not activity/Vol] IU/L [facility] 017 le 08:00-0 (58992) 500 ALT [Catalytic 12 U/L Invalid 0-44 IU/L Not activity/Vol] Interpreta Availab 017 tion Code le 08:00-0 (49264) 500 AST [Catalytic 11 U/L Invalid 0-40 IU/L Not activity/Vol] Interpreta Avail[facility] 017 tion Code le 08:00-0 (89243) 500 Basophils (Bld) 0.0 10*3/uL Invalid 0.0-0.2 Not 01-20 [#/Vol] Interpreta x10E3/uL [facility] 017 tion Code le 07:37-0 (81195) 500 Basophils/100 WBC 0 % Invalid % Not 01-20 (Bld) Interpreta [facility]ail[facility] 017 tion Code le 07:37-0 (22338) 500 Bilirubin [Mass/Vol] 0.5 mg/dL Invalid 0.0-1.2 Not Interpreta mg/dL [facility] 017 tion Code le 08:00-0 (84350) 500 Calcium [Mass/Vol] 9.8 mg/dL Invalid 8.7-10.2 Not 12-28 5-2 Interpreta mg/dL [facility] 017 tion Code le 07:56-0 (79684) 500 Chloride [Moles/Vol] 103 mmol/L Invalid 96-106 Not 0 25-2 Interpreta mmol/L [facility] 017 tion Code le 07:50-0 (34668) 500 Cholesterol 168 mg/dL Invalid 100-199 Not 2 [Mass/Vol] Interpreta mg/dL [facility] 017 tion Code le 09:08-0 (80557) 500 Cholesterol in HDL 66 mg/dL Invalid >39 mg/dL Not - 5-2 [Mass/Vol] Interpreta [facility]ail[facility] 017 tion Code le 09:08-0 (34428) 500 Cholesterol in LDL 96 mg/dL Invalid 0-99 mg/dL Not 2 [Mass/Vol] Interpreta Avail[facility] 017 tion Code le 09:08-0 (72927) 500 Cholesterol in VLDL 6 mg/dL Invalid 5-40 mg/dL Not [Mass/Vol] Interpreta Avail[facility] 017 tion Code le 09:08-0 (54515) 500 CO2 [Moles/Vol] 27 mmol/L Invalid 18-29 Not Interpreta mmol/L [facility] 017 tion Code le 07:56-0 (63327) 500 Creatinine 1.07 mg/dL Invalid 0.76-1.27 Not [Mass/Vol] Interpreta mg/dL [facility] 017 tion Code le 08:00-0 (03757) 500 Eosinophils (Bld) 0.1 10*3/uL Invalid 0.0-0.4 Not [#/Vol] Interpreta x10E3/uL [facility] 017 tion Code le 07:37-0 (04013) 500 Eosinophils/100 WBC 2 % Invalid % Not (Bld) Interpreta [facility]ail[facility] 017 tion Code le 07:37-0 (54399) 500 Erythrocyte 13.9 % Invalid 12.3-15.4 Not distribution width Interpreta % [facility]ail[facility] 017 (RBC) [Ratio] tion Code le 07:37-0 (49215) 500 GFR/1.73 sq 95 mL/min/{1.73_m2} Invalid >59 Not 0 01-20-2 M.predicted among Interpreta mL/min/1.7 Avail[facility] 017 blacks MDRD tion Code 3 le 08:00-0 (S/P/Bld) [Vol (59664) 500 rate/Area] GFR/1.73 sq 82 mL/min/{1.73_m2} Invalid >59 Not 0 2-25-2 M.predicted among Interpreta mL/min/1.7 Avail[facility] 017 non-blacks MDRD tion Code 3 le 08:00-0 (S/P/Bld) [Vol (03528) 500 rate/Area] Globulin (S) 2.0 g/dL Invalid 1.5-4.5 Not 25-2 [Mass/Vol] Interpreta g/dL [facility] 017 tion Code le 08:00-0 (99169) 500 Glucose [Mass/Vol] 79 mg/dL Invalid 65-99 Not 02-2 5-2 Interpreta mg/dL [facility] 017 tion Code le 07:56-0 (43573) 500 HbA1c (Bld) [Mass 6.3 % High 4.8-5.6 % Not -25 -2 fraction] [facility] 017 le 10:10-0 (92222) 500 Hematocrit (Bld) 43.3 % Invalid 37.5-51.0 Not 25- 2 [Volume fraction] Interpreta % Avail[facility] 017 tion Code le 07:37-0 (10788) 500 Hemoglobin (Bld) 14.1 g/dL Invalid 12.6-17.7 Not 0225- 2 [Mass/Vol] Interpreta g/dL [facility] 017 tion Code le 07:37-0 (33186) 500 Immature 0.0 10*3/uL Invalid 0.0-0.1 Not 02-25-2 granulocytes (Bld) Interpreta x10E3/uL [facility] 017 [#/Vol] tion Code le 07:37-0 (32912) 500 Immature 1 % Invalid % Not 25-2 granulocytes/100 WBC Interpreta Avail[facility] 017 (Bld) tion Code le 07:37-0 (88398) 500 Lymphocytes (Bld) 2.0 10*3/uL Invalid 0.7-3.1 Not 02- 25-2 [#/Vol] Interpreta x10E3/uL [facility]ail[facility] 017 tion Code le 07:37-0 (23832) 500 Lymphocytes/100 WBC 48 % Invalid % Not 02- 25-2 (Bld) Interpreta Availab 017 tion Code le 07:37-0 (70420) 500 MCH (RBC) [Entitic 29.8 pg Invalid 26.6-33.0 Not 12-28 5-2 mass] Interpreta pg [facility]ail[facility] 017 tion Code le 07:37-0 (99059) 500 MCHC (RBC) 32.6 g/dL Invalid 31.5-35.7 Not [Mass/Vol] Interpreta g/dL [facility] 017 tion Code le 07:37-0 (26858) 500 MCV (RBC) [Entitic 92 fL Invalid 79-97 fL Not 12-28-2 vol] Interpreta Availab 017 tion Code le 07:37-0 (73108) 500 Monocytes (Bld) 0.4 10*3/uL Invalid 0.1-0.9 Not 01-20 [#/Vol] Interpreta x10E3/uL Avail[facility] 017 tion Code le 07:37-0 (53218) 500 Monocytes/100 WBC 9 % Invalid % Not 01-20 (Bld) Interpreta Avail[facility] 017 tion Code le 07:37-0 (67168) 500 Neutrophils (Bld) 1.7 10*3/uL Invalid 1.4-7.0 Not [#/Vol] Interpreta x10E3/uL Avail[facility] 017 tion Code le 07:37-0 (59019) 500 Neutrophils/100 WBC 40 % Invalid % Not (Bld) Interpreta Availab 017 tion Code le 07:37-0 (30743) 500 Platelets (Bld) 238 10*3/uL Invalid 150-379 Not 01-20 [#/Vol] Interpreta x10E3/uL Avail[facility] 017 tion Code le 07:37-0 (54481) 500 Potassium 4.6 mmol/L Invalid 3.5-5.2 Not [Moles/Vol] Interpreta mmol/L [facility] 017 tion Code le 07:50-0 (45766) 500 Protein [Mass/Vol] 6.4 g/dL Invalid 6.0-8.5 Not 12-28 5-2 Interpreta g/dL [facility] 017 tion Code le 08:00-0 (05932) 500 RBC (Bld) [#/Vol] 4.73 10*6/uL Invalid 4.14-5.80 Not Interpreta x10E6/uL Availab 017 tion Code le 07:37-0 (14587) 500 Sodium [Moles/Vol] 143 mmol/L Invalid 134-144 Not Interpreta mmol/L [facility] 017 tion Code le 07:50-0 (50345) 500 Triglyceride 32 mg/dL Invalid 0-149 Not [Mass/Vol] Interpreta mg/dL [facility] 017 tion Code le 09:08-0 (62625) 500 Urea nitrogen 11 mg/dL Invalid 6-24 mg/dL Not [Mass/Vol] Interpreta Avail[facility] 017 tion Code le 07:56-0 (20015) 500 Urea 10 mg/mg Invalid 9-20 Not nitrogen/Creatinine Interpreta Availab 017 [Mass ratio] tion Code le 08:00-0 (52425) 500 WBC (Bld) [#/Vol] 4.2 10*3/uL Invalid 3.4-10.8 Not Interpreta x10E3/uL Availab 017 tion Code le 07:37-0 (58924) 500 Social History No Information Vital Signs Date Time Vital Sign Value Performing Clinician Facil ity 10-02-2012 Body height 182.88 cm Doctor Migration [facility] 13:33-0500 [facility] ([id number]) 10-02-2012 Body temperature 97.7 [degF] Doctor Migration [facility] 13:33-0500 [facility] ([id number]) 10-02-2012 Body weight 71.67 kg Doctor Migration [facility] 13:33-0500 [facility] ([id number]) Functional Status The data below is from unstructured sources Query Response Date Tong rded Patient Orientation Person Place Time Situation Normal For Age January 08, 2016 11:50am Comprehension Ability Understands Co ncepts January 08, 2016 11:50am Mental Status No Information History general Narrative - Reported Note Date & Note Facility Type History general Narrative - Reported Type Medical Poor Historian- Denies PMH History Surgical No know Surgical history History [facility]atio [facility] - Meningitis 2014 n History [facility] ([id number]) Advance Directives Directive Response Recor ded Date/Time Advance Directives No 11:50am Organ Donor Yes 01/08/16 11:50am Resuscitation Status Full Code 01/08/16 11:50am Discharge Instructions No hospital discharge instructions. Summary Purpose [employer]ClinicalWorks Submission Additional Source Comments This clinical document has been generated using [employer] software that has been certified by the Office of the National Coordinator for Health Information Technology (ONC 15.99.04.3023.Diam.31.00.0.137700) and the National Committee for Foot Specialist (NCQA, as an eMeasure certified technology). FOR RECORDS PERTAINING TO PATIENTS WHO ARE OR HAVE BEEN ENROLLED IN A CHEMICAL D EPENDENCY/SUBSTANCE ABUSE PROGRAM, SOME INFORMATION MAY BE OMITTED. This clinica l summary was aggregated from multiple sources. Caution should be exercised in using it in the provision of clinical care. This summary normalizes information from multiple sources, and as a consequence, information in this document may ma terially change the coding, format and clinical context of patient data. In sonya tion, data may be omitted in some cases. CLINICAL DECISIONS SHOULD BE BASED ON T HE PRIMARY CLINICAL RECORDS. [employer] provides no warranty or guara ntee of the accuracy or completeness of information in this document.The followi ng information is based on time limited clinical information UNRECOGNIZED CONTENT PROVIDED BELOW FOR UNRECOGNIZED SECTION REASON FOR VISIT NIG-HbhSNO-[id number]
[2020-06-09] MEDS ORDERED: NITROGLYCERIN 0.4 MG SL TABS BTL 25'S SL ONE (07:28)
[2020-06-09] MEDS ORDERED: ASPIRIN 81 MG CHEW (CHILDREN'S ASA) ONE (07:29)
--- NOTE | 2020-06-09 07:34 | NUR ---
PT DENIES C/P AT THIS X, STATE HURT IN UPPER L BACK WORSE UPON MOVEMENT AND AREA TENDER TO LT PALPATION. VSS 111/86-99% SAT-HR 47
[2020-06-09] MEDS ORDERED: NITROGLYCERIN 0.4 MG SL TABS BTL 25'S SL PRN (07:45)
[2020-06-09] MEDS ORDERED: ASPIRIN 81 MG CHEW (CHILDREN'S ASA) PO ONE (07:45)
[2020-06-09 07:54] LABS: BASOPHILS % (AUTO) 0 % (0-10); EOSINOPHILS # (AUTO) 0.1 10^3/uL (0.0-0.3); EOSINOPHILS % (AUTO) 2 % (0-10); HEMATOCRIT 41 % (40-54); HEMOGLOBIN 13.8 G/DL (13.3-17.7); LYMPHOCYTES % (AUTO) 43 % (12-44); MEAN CORPUSCULAR HEMOGLOBIN 29 PG (25-34); MEAN CORPUSCULAR HGB CONC 34 G/DL (32-36); MEAN CORPUSCULAR VOLUME 87 FL (80-99); MEAN PLATELET VOLUME 10.6 FL (7.4-10.4); MONOCYTES # (AUTO) 0.3 X 10^3 (0.0-1.0); MONOCYTES % (AUTO) 7 % (0-12); NEUTROPHILS # (AUTO) 2.1 X 10^3 (1.8-7.8); NEUTROPHILS % (AUTO) 47 % (42-75); PLATELET COUNT 216 10^3/uL (130-400); RED CELL DISTRIBUTION WIDTH 13.4 % (10.0-14.5); WHITE BLOOD COUNT 4.5 10^3/uL (4.3-11.0)
[2020-06-09] MEDS ORDERED: KETOROLAC 30 MG/ML VIAL IVP ONE (08:00)
--- NOTE | 2020-06-09 08:00 | NUR ---
COVID SWAB DONE ON PT
[2020-06-09 08:09] LABS: ALBUMIN 4.4 GM/DL (3.2-4.5); CHLORIDE 104 MMOL/L (98-107); POTASSIUM 3.8 MMOL/L (3.6-5.0); SODIUM 140 MMOL/L (135-145)
[2020-06-09 08:10] LABS: CALCIUM 9.5 MG/DL (8.5-10.1)
[2020-06-09 08:11] LABS: GLUCOSE 95 MG/DL (70-105)
--- NOTE | 2020-06-09 08:11 | Diagnostic Imaging Report ---
INDICATION: Chest pain. COVID like illness. Exam compared to 07/26/2017. The lungs are clear. Lung volumes symmetric and normal. No failure, effusion or pneumothorax. IMPRESSION: Stable normal frontal chest x-ray. Dictated by: Dictated on workstation # [id number]
[2020-06-09 08:12] LABS: CARBON DIOXIDE 26 MMOL/L (21-32)
[2020-06-09 08:13] LABS: BILIRUBIN,TOTAL 0.6 MG/DL (0.1-1.0)
[2020-06-09 08:15] LABS: ALKALINE PHOSPHATASE 42 U/L (40-136); CREATININE SERUM 1.11 MG/DL (0.60-1.30); GFR ESTIMATED > 60
[2020-06-09 08:16] LABS: BUN/CREATININE RATIO 14
[2020-06-09 08:18] LABS: ALANINE AMINOTRANSFERASE 10 U/L (0-55); MAGNESIUM 1.9 MG/DL (1.6-2.4)
[2020-06-09 08:19] LABS: LIPASE 13 U/L (8-78)
[2020-06-09 08:20] LABS: FIBRIN DEGRADATION PRODUCTS <= 0.27 UG/ML (0.00-0.49); PARTIAL THROMBOPLASTIN TIME 29 SEC (24-35); PROTHROMBIN TIME PATIENT 13.4 SEC (12.2-14.7)
--- NOTE | 2020-06-09 08:34 | ED Chest Pain ---
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 Nursing Sepsis Screen: No Definite Risk Source: patient Exam Limitations: no limitations History of Present Illness Date Seen by Provider: Jun 09, 2020 Time Seen by Provider: 07:20 Initial Comments This 50-year-old gentleman presents to the emergency room with complaints of right lower chest pain that radiates to his back and across over to the left side of his chest. Pain is a little bit worse when he takes a deep breath. He complains of shortness shortness of breath as well. He denies any fever or cough. 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 He denies any injury. Abdomen is not tender. He has not experienced any constipation or diarrhea. He admits to smoking marijuana and using vape. He has no known heart disease. He has not noticed any worsening in his symptoms with exertion. He is noted to be mildly hypertensive and bradycardic with a heart rate in the low 40s. Allergies and Home Medications Allergies Coded Allergies: No Known Allergies (Verified Allergy, Unknown, 08/23/06) Home Medications Amoxicillin/Potassium Clav 1 Each Tablet, 1 EACH PO BID Prescribed by: MOISE FOWLER on 04/01/18 1218 Patient Home Medication List Home Medication List Reviewed: Yes Review of Systems Review of Systems Constitutional: no symptoms reported EENTM: No Symptoms Reported Respiratory: See HPI Cardiovascular: See HPI Gastrointestinal: No Symptoms Reported Genitourinary: No Symptoms Reported Musculoskeletal: see HPI Skin: no symptoms reported Psychiatric/Neurological: No Symptoms Reported Endocrine: No Symptoms Reported Hematologic/Lymphatic: No Symptoms Reported Past Twqccbt-Ufjfrf-Eyyyqh Hx Past Med/Social Hx: Reviewed Nursing Past Med/Soc Hx Patient Social History Alcohol Use: Denies Use Recreational Drug Use: Yes Drug of Choice: marijuana Smoking Status: Former Smoker Type Used: Electronic/Vapor Recent Foreign Travel: No Contact w/Someone Who Travel: No Recent Infectious Disease Expo: No Recent Hopitalizations: No Physical Abuse: No Sexual Abuse: No Seasonal Allergies Seasonal Allergies: No Past Medical History Surgeries: No Respiratory: No Cardiac: No Neurological: Yes (STATES HAS HAD MENINGITIS 5 YEARS AGO) Gastrointestinal: No Musculoskeletal: No Endocrine: No HEENT: No Cancer: No Psychosocial: No Integumentary: No Blood Disorders: No Physical Exam Vital Signs Vital Signs - First Documented 06/09/20 07:10 Temp 36.6 Pulse 51 Resp 18 B/P (MAP) 162/93 (116) Pulse Ox 100 O2 Delivery Room Air Capillary Refill : Less Than 3 Seconds Height, Weight, BMI Height: 6'" Weight: 160lbs. oz. 72.405248xp; 22.00 BMI Method:Stated General Appearance: No Apparent Distress, Thin HEENT: PERRL/EOMI, Normal ENT Inspection Neck: Normal Inspection Respiratory: Chest Non Tender, Lungs Clear, Normal Breath Sounds, No Accessory Muscle Use, No Respiratory Distress Cardiovascular: No Edema, No Murmur, Normal Peripheral Pulses, Bradycardia Gastrointestinal: Normal Bowel Sounds, Non Tender, Soft Extremity: Normal Inspection, Non Tender, No Calf Tenderness, No Pedal Edema, Other (Negative Chucho) Neurologic/Psychiatric: Alert, Oriented x3, No Motor/Sensory Deficits, Normal Mood/Affect, cotton puller II-XII Norm as Tested Skin: Normal Color, Warm/Dry Progress/Results/Core Measures Results/Orders Lab Results Laboratory Tests Test 06/09/20 07:25 06/09/20 08:00 06/09/20 10:54 Range/Units White Blood Count 4.5 4.3-11.0 10^3/uL Red Blood Count 4.70 4.35-5.85 10^6/uL Hemoglobin 13.8 13.3-17.7 G/DL Hematocrit 41 40-54 % Mean Corpuscular Volume 87 80-99 FL Mean Corpuscular Hemoglobin 29 25-34 PG Mean Corpuscular Hemoglobin Concent 34 32-36 G/DL Red Cell Distribution Width 13.4 10.0-14.5 % Platelet Count 216 130-400 10^3/uL Mean Platelet Volume 10.6 H 7.4-10.4 FL Neutrophils (%) (Auto) 47 42-75 % Lymphocytes (%) (Auto) 43 12-44 % Monocytes (%) (Auto) 7 0-12 % Eosinophils (%) (Auto) 2 0-10 % Basophils (%) (Auto) 0 0-10 % Neutrophils # (Auto) 2.1 1.8-7.8 X 10^3 Lymphocytes # (Auto) 2.0 1.0-4.0 X 10^3 Monocytes # (Auto) 0.3 0.0-1.0 X 10^3 Eosinophils # (Auto) 0.1 0.0-0.3 10^3/uL Basophils # (Auto) 0.0 0.0-0.1 10^3/uL Erythrocyte Sedimentation Rate 2 0-30 MM/HR Prothrombin Time 13.4 12.2-14.7 SEC INR Comment 1.0 0.8-1.4 Activated Partial Thromboplast Time 29 24-35 SEC D-Dimer <= 0.27 0.00-0.49 UG/ML Sodium Level 140 135-145 MMOL/L Potassium Level 3.8 3.6-5.0 MMOL/L Chloride Level 104 98-107 MMOL/L Carbon Dioxide Level 26 21-32 MMOL/L Anion Gap 10 5-14 MMOL/L Blood Urea Nitrogen 16 7-18 MG/DL Creatinine 1.11 0.60-1.30 MG/DL Estimat Glomerular Filtration Rate > 60 BUN/Creatinine Ratio 14 Glucose Level 95 70-105 MG/DL Calcium Level 9.5 8.5-10.1 MG/DL Corrected Calcium 9.2 8.5-10.1 MG/DL Magnesium Level 1.9 1.6-2.4 MG/DL Total Bilirubin 0.6 0.1-1.0 MG/DL Aspartate Amino Transf (AST/SGOT) 15 5-34 U/L Alanine Aminotransferase (ALT/SGPT) 10 0-55 U/L Alkaline Phosphatase 42 40-136 U/L Myoglobin 42.7 10.0-92.0 NG/ML Troponin I < 0.028 < 0.028 <0.028 NG/ML C-Reactive Protein High Sensitivity 0.15 0.00-0.50 MG/DL Total Protein 7.0 6.4-8.2 GM/DL Albumin 4.4 3.2-4.5 GM/DL Lipase 13 8-78 U/L TSH Logan Testing 0.66 0.35-4.94 UIU/ML My Orders Orders - BOBY MORLEY MD Nitroglycerin 0.4 Mg Btl 25's (Nitrostat (06/09/20 07:28) Aspirin Chewable Tablet (Baby Aspirin Ch (06/09/20 07:29) Cbc With Automated Diff (06/09/20 07:36) Magnesium (06/09/20 07:36) Chest 1 View, Ap/Pa Only (06/09/20 07:36) Ekg Tracing (06/09/20 07:36) Comprehensive Metabolic Panel (06/09/20 07:36) Myoglobin Serum (06/09/20 07:36) Protime With Inr (06/09/20 07:36) Partial Thromboplastin Time (06/09/20 07:36) O2 (06/09/20 07:36) Monitor-Rhythm Ecg Trace Only (06/09/20 07:36) Ed Iv/Invasive Line Start (06/09/20 07:36) Lipase (06/09/20 07:36) Troponin I (06/09/20 07:36) Nitroglycerin 0.4 Mg Btl 25's (Nitrostat (06/09/20 07:45) Aspirin Chewable Tablet (Baby Aspirin Ch (06/09/20 07:45) Coronavirus Sars-Cov-2 So 2018 (06/09/20 07:36) Hs C Reactive Protein (06/09/20 07:38) Erythrocyte Sedimentation Rate (06/09/20 07:41) Thyroid Analyzer (06/09/20 07:41) Ketorolac Injection (Toradol Injection) (06/09/20 08:00) Fibrin Degradation Products (06/09/20 07:25) Troponin I (06/09/20 10:50) Medications Given in ED Current Medications Medications Dose Ordered Sig/Maria Teresa Route Start Time Stop Time Status Last Admin Dose Admin Aspirin 324 mg ONCE ONCE PO 06/09/20 07:45 06/09/20 07:46 DC 06/09/20 07:30 324 MG Ketorolac Tromethamine 15 mg ONCE ONCE IVP 06/09/20 08:00 06/09/20 08:01 DC 06/09/20 07:54 15 MG Nitroglycerin 0.4 mg UD PRN SL 06/09/20 07:45 06/09/20 12:03 DC 06/09/20 07:30 0.4 MG Vital Signs/I&O 06/09/20 06/09/20 06/09/20 06/09/20 07:10 07:10 11:55 12:00 Temp 36.6 36.6 Pulse 51 43 Resp 18 18 B/P (MAP) 162/93 (116) 157/98 (116) 136/94 (108) 134/96 (109) 138/81 (100) 137/79 (98) 134/84 (101) 144/90 (108) 160/97 (118) 151/100 (117) Pulse Ox 100 99 40 O2 Delivery Room Air Room Air Blood Pressure Mean: 116 Progress Progress Note #1: Time: 09:23 Progress Note Chest pain workup is negative so far. A repeat troponin at 4 hours from onset of symptoms is pending. I discussed the case with Dr. Bowden. He suggested having the patient exercise and rechecking his heart rate. After exercise, heart rate is only 46. When pain was initially treated with nitroglycerin and a spirin, he had a significant reduction in pain. Nursing staff then noted he seemed to have chest wall pain on the left lateral chest and moving posteriorly under the scapula. His pain had decreased from about 7/10 down to 2 or 3/10. He was then given Toradol and is now pain-free even after exercise. Progress Note #2: Time: 11:00 Progress Note Patient is denying any pain at this time. Repeat troponin has been drawn and sent. HR after exercise was 46. HR at present is 36. Progress Note #3: Progress Note Troponin 4 hours after onset of symptoms was negative. Patient remained pain free. He was set up with [facility] senior [facility] systems [facility] Also to follow-up with Dr. Bowden. Initial ECG Impression Date: Jun 09, 2020 Initial ECG Impression Time: 07:20 Initial ECG Rate: 43 Initial ECG Rhythm: S.Ramon Initial ECG Intervals: Normal Initial ECG Impression: Sinus Bradycardia Comment Sinus bradycardia with no ST elevation or depression. No abnormal intervals or axis deviation. Diagnostic Imaging Diagonstic Imaging: Xray Plain Films/CT/US/NM/MRI: chest Comments Chest x-ray viewed by me and report reviewed. See report below: NAME: NIKHIL NOBLES [facility] REC#: [id number] PT STATUS: REG ER : 1970 PHYSICIAN: BOBY MORLEY MD ADMIT DATE: 06/09/20/ER Draft Date of Exam:06/09/20 CHEST 1 VIEW, AP/PA ONLY INDICATION: Chest pain. COVID like illness. Exam compared to 07/26/2017. The lungs are clear. Lung volumes symmetric and normal. No failure, effusion or pneumothorax. IMPRESSION: Stable normal frontal chest x-ray. Dictated on workstation # [id number] Dict: 06/09/2008 Trans: 06/09/20 08 [facility] [id number] Interpreted by: QUINTON SCANLON Departure Impression Primary Impression: Atypical chest pain Additional Impression: Bradycardia Disposition: 01 HOME, SELF-CARE Condition: Improved Departure-Patient Inst. Decision time for Depature: 11:45 Ref[place]: [facility] [place] Primary Care Physician Nenita BOWDEN MD Patient Instructions: Bradycardia, COVID19, Chest Pain Add. Discharge Instructions: Follow-up with Dr. Bowden as soon as possible regarding your chest pain and low heart rate (bradycardia). Wear the heart monitor as instructed. Take aspirin 81 mg daily until otherwise instructed. For pain try Tylenol (acetaminophen) up to 1000 mg every 6 hours. You may also add ibuprofen up to 600 mg every 6 hours if needed. Take ibuprofen with food or milk to avoid stomach upset. Because you were screened for johnson virus, you and your close contacts need to home isolate until the results of your tests are known. Return to the emergency room if you have worsening symptoms. All discharge instructions reviewed with patient and/or family. Voiced understanding. Work/School Note: Work Release Form Return to Work: Jun 12, 2020 Other Restrictions Listed Below: May return to work if COVID-19 testing result is negative Copy Copies To 1: Nenita BOWDEN MD Copies To 2: SHASHI NELSON JOSHUA T MD Jun 09, 2020 08:34
[2020-06-09 08:39] LABS: TSH (THYROID ANALYZER) 0.66 UIU/ML (0.35-4.94)
--- NOTE | 2020-06-09 08:52 | NUR ---
PT AMBULATED IN [address] WAY NO DISTRESS, HR-46, SAT 100%, B/P-144/99
--- NOTE | 2020-06-09 10:00 | NUR ---
VS 0930 HR-42 B/P-137/79 1000 45 134/84
--- NOTE | 2020-06-09 10:54 | NUR ---
2ND TROPONIN DRAWN AND TO LAB
[2020-06-09 12:00] VITALS: BP_SYST 134; BP_SYST 136; BP_SYST 137; BP_SYST 138; BP_SYST 144; BP_SYST 151; BP_SYST 160; BP_DIAS 100; BP_DIAS 79; BP_DIAS 81; BP_DIAS 84; BP_DIAS 90; BP_DIAS 94; BP_DIAS 96; BP_DIAS 97
== END 2020-06-09 11:55 | disposition home or self-care (01) ==
LOC: EDUNIT# 07:05 → ER 07:06
DX: R07.89 Other chest pain (principal); R00.1 Bradycardia, unspecified; Z87.891 Personal history of nicotine dependence; Z20.828 Contact with and (suspected) exposure to other viral communicable diseases
CPT/HCPCS: 71045; 80053; 83690; 83735; 83874; 84443; 84484; 85025; 85379; 85610; 85652; 85730; 86141; 93005; 93041; 96374; 99284; U0002; 36415; 87635

== ENCOUNTER 2020-06-09 12:31 | Outpatient (RCR) | payer OTHER | END 2020-09-07 | disposition home or self-care (01) | LOC: CARD 12:31 | PROVIDERS: ATTEND Internal Medicine Interventional Cardiology | DX: R00.1 Bradycardia, unspecified (principal) | CPT/HCPCS: 93225; 93226 ==

== ENCOUNTER → 2020-06-22 | Outpatient (CLI) | payer OTHER | LOC: CARD 11:45 | PROVIDERS: ATTEND Internal Medicine Interventional Cardiology | DX: F12.20 Cannabis dependence, uncomplicated (principal); F15.90 Other stimulant use, unspecified, uncomplicated; R00.1 Bradycardia, unspecified; R07.2 Precordial pain; R06.02 Shortness of breath | CPT/HCPCS: 93306 ==

== ENCOUNTER → 2020-07-08 | Outpatient (CLI) | payer OTHER ==
[~2020-07-08] VITALS: Ht 182 cm; Wt 74.0 kg
[~2020-07-08] MED LIST changes: +REGADENOSON 0.4 MG/5 ML SYR (LEXISCAN) IV ONE
[2020-07-08] MEDS: CATHETER FLUSH 10 ML SYR IV PRN ×2 (08:08→09:04)
[2020-07-08 09:02] VITALS: BP 125/83
--- NOTE | 2020-07-08 17:31 | Cardiology Stress Test Report ---
Stress Test Report Type of NM Stress Test: Test Type: LEXISCAN 0.4MG/5ML Date of Procedure/Referring: Date of Procedure: Jul 08, 2020 PCP Nenita Bowden MD Admitting Physician Center[facility] Indications: Chest pain Baseline Heart Rate: 41 Baseline Blood Pressure: Blood Pressure Systolic: 125 Blood Pressure Diastolic: 83 Baseline EKG: Baseline EKG: Sinus rhythm Summary & Conclusion: Summary: The patient was brought to the stress lab after informed consent was taken. Stress test was performed according to the Lexiscan protocol. 0.4 mg of IV Lexiscan was given. Low-grade exercise was performed. Baseline EKG showed sinus rhythm at 41 BPM. Initial blood pressure was 125/83 mmHg. Maximum heart rate was 66 bpm and blood pressure 134/98 mmHg. Patient did not have any chest pain, arrhythmias or ST segment changes during the stress test. 10.71 mCi of Myoview were given for rest imaging and 32.3 mCi of Myoview given for stress imaging. Transient ischemic dilatation score 1.03, EF 51 percent. Normal wall motion. Small fixed apical defect. Conclusion: Pharmacological stress test was negative for ischemia. Normal LV function with no wall motion abnormalities. Small fixed apical defect likely artifact. Low risk study. Nenita BOWDEN MD Jul 08, 2020 17:31
== END ==
LOC: CARD 07:51
PROVIDERS: ATTEND Internal Medicine Interventional Cardiology
DX: R07.2 Precordial pain (principal); R06.02 Shortness of breath; R00.1 Bradycardia, unspecified; F15.90 Other stimulant use, unspecified, uncomplicated; F12.90 Cannabis use, unspecified, uncomplicated
CPT/HCPCS: 78452; 93017; A9502

== ENCOUNTER 2021-10-29 11:38 | Emergency (ER) | payer OTHER ==
[~2021-10-29] VITALS: Ht 183 cm; Wt 76.0 kg
[~2021-10-29 11:38] MED LIST changes: -REGADENOSON 0.4 MG/5 ML SYR (LEXISCAN) IV ONE
[2021-10-29 11:45] VITALS: BP 126/83
--- NOTE | 2021-10-29 11:46 | ED Upper Extremity ---
General Stated Complaint: RIGHT LOWER ARM DOG BITE Source: patient Exam Limitations: no limitations History of Present Illness Date Seen by Provider: Oct 29, 2021 Time Seen by Provider: 11:45 Initial Comments Patient is a 51-year-old male who presents to the emergency department today with a chief complaint of a dog bite to his right forearm. Patient states that he was reaching down to separate his own 2 dogs when he was bitten. This was a provoked bite. Patient believes that his dogs are vaccinated but will check with his vet. He is up-to-date on his tetanus. He denies any medical allergies. No complaints of numbness weakness or tingling to the right hand. No other complaints of injury. No recent illness. All other review of systems reviewed and negative except as stated. Onset: just prior to arrival Severity: mild Pain/Injury Location: right forearm Method of Injury: other (dog bite) Allergies and Home Medications Allergies Coded Allergies: NKANo Known Allergies (Verified Allergy, Unknown, 08/23/06) Patient Home Medication List Home Medication List Reviewed: Yes Amoxicillin/Potassium Clav (Augmentin 875-125 Tablet) 1 Each Tablet, 1 EACH PO BID Prescribed by: MOISE FOWLER on 04/01/18 1218 Amoxicillin/Potassium Clav (Augmentin 875-125 Tablet) 1 Each Tablet, 1 EACH PO BID Prescribed by: LEONEL GERARDO on 10/29/21 1211 Review of Systems Constitutional: see HPI EENTM: no symptoms reported Respiratory: no symptoms reported Cardiovascular: no symptoms reported Gastrointestinal: no symptoms reported Genitourinary: no symptoms reported Musculoskeletal: no symptoms reported Skin: other (laceration right forearm, punture dorsal hand and volar wrist) All Other Systems Reviewed Negative Unless Noted: Yes Past Eymkqsd-Zggfzm-Qqguzc Hx Seasonal Allergies Seasonal Allergies: No Past Medical History Surgeries: No Respiratory: No Cardiac: No Neurological: Yes (STATES HAS HAD MENINGITIS 5 YEARS AGO) Gastrointestinal: No Musculoskeletal: No Endocrine: No HEENT: No Cancer: No Psychosocial: No Integumentary: No Blood Disorders: No Physical Exam Vital Signs Vital Signs - First Documented 10/29/21 11:45 Temp 36.7 Pulse 60 Resp 20 B/P (MAP) 126/83 (97) Pulse Ox 99 O2 Delivery Room Air Capillary Refill : Height, Weight, BMI Height: 6'" Weight: 160lbs. oz. 72.940782nh; 22.34 BMI Method:Stated General Appearance: WD/WN, no apparent distress Neck: full range of motion Cardiovascular: regular rate, rhythm Respiratory: no respiratory distress, no accessory muscle use Shoulder: normal inspection, non-tender, no evidence of injury, normal ROM Elbow/Forearm: non-tender, normal ROM, Right, soft tissue tenderness (right forearm 2cm angulated laceration with sub cutaneous tissue exposed. minimal bleeding. slightly gaping) Wrist: Yes non-tender, Yes normal ROM, Yes soft tissue tenderness (less than 0.5cm superficial laceration center volar right wrist, no active bleeding. wound edges approximated) Hand: non-tender, normal ROM, Right, swelling (small punture, not open dorsal right hand proximal to 4th finger MCP, no active bleeding) Neurologic/Tendon: normal sensation, normal motor functions, normal tendon functions Neurologic/Psychiatric: no motor/sensory deficits, alert, normal mood/affect, oriented x 3 Skin: normal color, warm/dry, other (as above) Procedures/Interventions Wound Location: Upper Extremities (right forearm) Other Wound Location center volar right forearm Wound Length (cm): 2 Wound's Depth, Shape: superficial (angulated) Irrigated w/ Saline (ccs): 250 Suture: Prolene Suture Size: 5-0 Number of Sutures: 1 Layer Closure?: 0 Sterile Dressing Applied?: Yes Progress patient declined local anesthesia; wounds copiously irrigated and cleansed with betasept and saline. 1 suture placed at the apex of the lac to loosely approximated wound margins. Progress/Results/Core Measures Results/Orders Vital Signs/I&O 10/29/21 11:45 Temp 36.7 Pulse 60 Resp 20 B/P (MAP) 126/83 (97) Pulse Ox 99 O2 Delivery Room Air Departure Impression Primary Impression: Dog bite Qualified Codes: W54.0XXA - Bitten by dog, initial encounter Additional Impression: Laceration of right forearm Qualified Codes: S51.811A - Laceration without foreign body of right forearm, initial encounter Disposition: 01 HOME, SELF-CARE Condition: Stable Departure-Patient Inst. Decision time for Depature: 12:10 Referrals: TOBY DAVIDSON (PCP/Family) Primary Care Physician Patient Instructions: Animal and Human Bites Add. Discharge Instructions: Wash the wounds daily with soap and water. You can apply an little bit of Neosporin or triple antibiotic ointment to the wounds twice a day for 2 to 3 days. The suture in your right forearm will need to be removed in 7 to 10 days. Monitor the wounds for signs of infection such as redness, swelling, drainage of pus or streaking up your arm. Take the antibiotics, Augmentin twice a day for 5 days. Return to the emergency department to have the suture removed in 7 to 10 days. Or sooner if you develop signs or symptoms of infection. Follow-up with your primary care doctor as needed. Scripts Amoxicillin/Potassium Clav (Augmentin 875-125 Tablet) 1 Each Tablet 1 EACH PO BID, #10 TAB 0 Refills Prov: LEONEL GERARDO MD 10/29/21 Copy Copies To 1: SHASHI NELSON KATHRYN M MD Oct 29, 2021 11:45
[2021-10-29] MEDS ORDERED: AMOX-358 PO (12:11)
== END 2021-10-29 12:30 | disposition home or self-care (01) ==
LOC: EDUNIT# 11:38 → ER 11:41
DX: S51.811A Laceration without foreign body of right forearm, initial encounter (principal); W54.0XXA Bitten by dog, initial encounter
CPT/HCPCS: 12011